=== PATIENT | female | born 1950 | race Caucasian/White ===

== ENCOUNTER → 2016-08-17 | Outpatient (CLI) | payer BC ==
[~2016-08-17] MED LIST: ASPCH81 PO; CALC600T37 PO; CHOL100010 PO; IPRA1AER2 INH; LISI5TAB3 PO; LUTE20CA
--- NOTE | 2016-08-18 08:01 | MAMMOGRAPHY REPORT ---
BILATERAL DIGITAL SCREENING MAMMOGRAM WITH CAD: 08/17/2016 CLINICAL HISTORY: Routine screening. Patient has no complaints. TECHNIQUE: Bilateral CC and MLO views were obtained. Current study was also evaluated with a Compute r Aided Detection (CAD) system. COMPARISON: Comparison is made to exams dated: 08/15/2015 mammogram, 08/13/2014 mammogram, 08/10/2013 mamm ogram, 08/09/2012 mammogram, 08/04/2011 mammogram, and 07/30/2010 mammogram - [facility] BREAST COMPOSITION: There are scattered areas of fibroglandular density in both breasts. FINDINGS: There are stable microcalcifications in the right breast. No new suspicious mass, architec tural distortion or cluster of microcalcifications is seen. IMPRESSION: ACR BI-RADS CATEGORY 1: NEGATIVE There is no mammographic evidence of malignancy. A 1 year screening mammogram is recommended. The pa tient will receive written notification of the results. Approximately 10% of breast cancers are not detected with mammography. A negative mammographic report should not delay biopsy if a clinically suggestive mass is present. Sarah Borjas M.D. ay/:08/17/2016 14:24:10 House Sitter: Celia PHIPPS(R)(M), [facility] letter sent: Normal 1/2 BI-RADS Code: ACR BI-RADS Category 1: Negative
== END | disposition home or self-care (01) ==
LOC: C.MAMM 13:45
PROVIDERS: ATTEND Obstetrics & Gynecology
DX: Z12.31 Encounter for screening mammogram for malignant neoplasm of breast (principal)

== ENCOUNTER → 2016-11-20 | Outpatient (CLI) | payer BC ==
[2016-11-20 13:30] LABS: BASO ABS # 0.06 K/uL (0-0.2); COMPLETE YES; HEMATOCRIT 45.9 % (37-47); LYMPH % 25.6 %; LYMPH ABS # 1.55 K/uL (1.2-3.4); MEAN CELL VOLUME 103.8 fL (80-100); MEAN CORPUSCULAR HEMOGLOBIN 35.1 pg (25-34); MEAN CORPUSCULAR HGB CONC 33.8 g/dl (32-36); MEAN PLATELET VOLUME 11.6 fL (7.4-10.4); MONO % 12.7 %; NEUT % 56.7 %; PLATELET COUNT 304 K/uL (130-400); RED BLOOD COUNT 4.42 M/uL (4.2-5.4); WHITE BLOOD COUNT 6.05 K/uL (4.8-10.8)
[2016-11-20 14:09] LABS: ALT/SGPT 16 U/L (12-78); AST/SGOT 17 U/L (15-37); BLOOD UREA NITROGEN 8 mg/dl (7-18); BUN/CREATININE RATIO 12.2 (10-20); CALCIUM 9.3 mg/dl (8.5-10.1); CARBON DIOXIDE 27 mmol/L (21-32); CHLORIDE 107 mmol/L (98-107); CHOLESTEROL 248 mg/dl (0-200); CREATININE 0.63 mg/dl (0.60-1.20); GLUCOSE 88 mg/dl (70-99); POTASSIUM 4.3 mmol/L (3.5-5.1); SODIUM 140 mmol/L (136-145)
[2016-11-20 14:19] LABS: ALB/GLOB RATIO 1.1 (0.9-2); ALKALINE PHOSPHATASE 65 U/L (45-117); CHOLESTEROL/HDL RATIO 2.9; HDL CHOLESTEROL 86 mg/dl; TRIGLYCERIDES 121 mg/dl (0-150); VERY LOW DENSITY LIPOPROT CALC 24 mg/dl
== END | disposition home or self-care (01) ==
LOC: C.LAB1850 11:49
PROVIDERS: ATTEND Internal Medicine
DX: R53.83 Other fatigue (principal); I10 Essential (primary) hypertension; E78.5 Hyperlipidemia, unspecified; E55.9 Vitamin D deficiency, unspecified

== ENCOUNTER → 2017-02-10 | Outpatient (CLI) | payer BC | END | disposition home or self-care (01) | LOC: C.LABSPEC 14:55 | PROVIDERS: ATTEND Internal Medicine | DX: Z12.11 Encounter for screening for malignant neoplasm of colon (principal) ==

== ENCOUNTER → 2017-10-11 | Outpatient (CLI) | payer BC ==
[~2017-10-11] MED LIST changes: +OXYC-90 PO
[2017-10-11 14:33] LABS: BLOOD UREA NITROGEN 7 mg/dl (7-18); CREATININE 0.67 mg/dl (0.60-1.20)
== END | disposition home or self-care (01) ==
LOC: C.LAB1850 13:23
PROVIDERS: ATTEND Orthopaedic Surgery Sports Medicine
DX: Z01.812 Encounter for preprocedural laboratory examination (principal)

== ENCOUNTER 2023-12-09 15:14 | Inpatient (IN) ==
[2023-12-09 16:03] LABS: Basophils # (auto) 0.13 K/uL (0.00-0.20); Basophils % (auto) 1.2 %; Eosinophils # (auto) 0.11 K/uL (0.00-0.50); Hematocrit (blood only) 32.2 % (37.0-47.0); Hemoglobin 9.2 g/dl (12.0-16.0); Immature Granulocytes # (auto) 0.04 K/uL (0.01-0.20); Immature Granulocytes % (auto) 0.4 %; Lymphocytes # (auto) 1.17 K/uL (1.20-3.40); Lymphocytes % (auto) 10.6 %; Mean Corpuscular Hemoglobin 22.2 pg (25.0-34.0); Mean Corpuscular Hgb Conc 28.6 g/dL (32.0-36.0); Mean Corpuscular Volume 77.6 fL (80.0-100.0); Monocytes # (auto) 1.35 K/uL (0.11-0.59); Monocytes % (auto) 12.3 %; Neutrophils # (auto) 8.21 K/uL (1.40-6.50); Neutrophils % (auto) 74.5 %; Platelet Count 495 K/uL (130-400); RDW Coefficient of Variation 16.8 % (11.5-14.5); RDW Standard Deviation 47.2 fL (36.4-46.3); Red Blood Count 4.15 M/uL (4.20-5.40); White Blood Count 11.01 K/ul (4.8-10.8)
[2023-12-09 16:21] LABS: Alanine Aminotransferase 9 U/L (7-52); Albumin Globulin Ratio 1.5 (0.9-2); Albumin Level 4.1 gm/dl (3.4-5.0); Alkaline Phosphatase 75 U/L (34-104); Anion Gap 7 (3-11); Aspartate Aminotransferase 11 U/L (13-39); BUN Creatinine Ratio 19.6 (10-20); Bilirubin,Total 0.5 mg/dl (0.2-1.0); Blood Urea Nitrogen 11 mg/dl (6-23); Calcium 9.2 mg/dl (8.6-10.3); Carbon Dioxide 25 mmol/L (21-32); Chloride 104 mmol/L (98-107); Globulin 2.7 gm/dl (2.5-4.0); Glucose 85 mg/dl (70-99(Fasting)); Potassium 4.1 mmol/L (3.5-5.1); Sodium 136 mmol/L (136-145); Total Protein 6.8 gm/dl (6.0-8.3)
[2023-12-09 16:27] LABS: Troponin I High Sensitivity 3.9 pg/ml (0-14)
[2023-12-09 16:35] LABS: Partial Thromboplastin Time 27 Seconds (21-31); Prothrombin Time 10.8 Seconds (9.0-12.0)
--- NOTE | 2023-12-09 16:42 | Electrocardiogram Report ---
Test Reason : Blood Pressure : */* mmHG Vent. Rate : 118 BPM Atrial Rate : 118 BPM P-R Int : 180 ms QRS Dur : 68 ms QT Int : 308 ms P-R-T Axes : 90 82 74 degrees QTcB Int : 431 ms Sinus tachycardia with PACs Right atrial enlargement Borderline ECG When compared with ECG of 21-Apr-2023 16:28, No significant change was found Confirmed by Nick Ch ([id number]) on 12/09/2023 4:42:25 PM Referred By: Confirmed By: Nick Ch
--- NOTE | 2023-12-09 17:05 | XRay Report ---
XR chest 1V not portable HISTORY: 73 years-old Female Chest pain, nonspecific COMPARISON: CT chest 05/04/2023 TECHNIQUE: PA view of the chest FINDINGS: Emphysema with chronic interstitial coarsening. Biapical pleural parenchymal scarring redemonstrated. Unchanged linear scarring versus atelectasis of the right lung base. No pneumothorax, pleural effusi on or overt pulmonary edema. Degenerative changes of the shoulders and spine. IMPRESSION: Emphysema without acute process. ACT 112: Negative or not required by law. The above report was generated using voice recognition software. It may contain grammatical, syntax o r spelling errors. Electronically signed by: David Rodrigez M.D. 12/09/2023 5:04 PM
--- NOTE | 2023-12-09 18:05 | Emergency Department Note ---
Impression & Plan Dizziness, Symptomatic anemia, Acute upper GI bleed ED Provider Note HISTORY OF PRESENT ILLNESS: Patient is a 73-year-old female presenting with hypotension and dizziness. Patient was at an outpatient pulmonology visit today when she was noted to be hypotensive with a systolic blood pressure in the low 90s. Patient reports that she has not felt well throughout the day today. Reports she woke up early this morning and was feeling "out of it." She denies any chest pain or abdominal pain. She reports intermittent episodes of shortness of breath. She has end- stage COPD and follows with pulmonology but is not on any supplemental oxygen. She reports feeling shaky and lightheaded throughout the day today. She denies any recent fevers. She denies any melena or obvious hematochezia. She is on Eliquis for history of DVTs. ROS: as above PHYSICAL EXAM: Constitutional: Patient appears in no acute distress. HENT: Head: Normocephalic and atraumatic. Eyes: EOMI, PERRL Mouth/Throat: Mucous membranes moist. Neck: Trachea midline. Neck supple. Cardiovascular: Tachycardic with regular rhythm. No murmurs, rubs or gallops. Intact distal pulses. Pulmonary/Chest: No respiratory distress. Breath sounds clear and equal bilaterally. No wheezes or rales. Abdominal: Abdomen soft, no tenderness, rebound or guarding. Rectal: Chaperoned by nursing staff. No palpable hemorrhoids or masses on rectal exam. Noted to have Hemoccult positive stool. No gross blood or obvious melena on glove. Musculoskeletal: No edema, tenderness or deformity noted. Skin: Warm and dry. No rash, erythema, pallor or cyanosis Psychiatric: Appropriate mood and affect for situation. Neurological: Alert and keenly responsive. CN II-XII grossly intact, moving all extremities equally and fully. MDM: - Vitals signs showed tachycardia - History obtained via patient. History as above. - Chronic conditions affecting care: COPD; Afib; HLD - Differential diagnoses include, but are not limited to: ACS; dysrhythmia; anemia; electrolyte abnormality; pneumonia - Order placed for continuous cardiac monitoring. At this time, monitor showed rate of 107 bpm with normal sinus rhythm, per my interpretation. - External medical records reviewed. Pulmonary office visit note from today was reviewed. Patient had vital signs with systolic blood pressure in the low to mid 90s. She also reportedly was complaining of dizziness at the appointment. - EKG interpreted by myself showed normal sinus rhythm. Rate tachycardic at 118 bpm. QT 308. No acute ischemic changes - Laboratory workup interpreted by myself showed leukocytosis (WBC 11.01); anemia (Hgb 9.2); normal PT/INR; stable electrolytes; normal troponin - CXR negative for pneumonia, per my interpretation. - Hemoglobin was noted to be 12.9 in April 2023. - Type and screen ordered - Orthostatic vital signs positive - patient became hypotensive and tachycardic with standing. - Given patient's hemoglobin drop since April and her symptoms, rectal exam was performed to rule out potential GI bleed. Rectal exam Hemoccult positive. Patient given 80 mg IV protonix. - Discussion was had with manager of case management about patient's case and need for admission - Hospitalist, Dr. Rankin, consulted for admission - Patient admitted to [facility] service for further evaluation and management. ASSESSMENT AND PLAN: Diagnosis: Dizziness; acute upper GI bleed; symptomatic anemia Plan: Admit Past Med/Surg History Problem List (Updated 12/09/23 @ 19:03 by Rika Chaudhary MD) Acute upper GI bleed (Acute) Symptomatic anemia (Acute) Dizziness (Acute) Chronic respiratory failure Chronic bronchitis Exertional shortness of breath Current smoker COPD with emphysema COVID-19 (Acute) Hyperlipidemia Cigarette nicotine dependence Unintended weight loss Osteoporosis Hypertension Abnormal ECG Dyspnea on exertion Medical History (Updated 12/09/23 @ 19:03 by Rika Chaudhary MD) Hypertension Asthma Chronic obstructive pulmonary disease Surgical History S/P cataract surgery History of cataract surgery LEFT Hx of tubal ligation Family History Mother Breast cancer Lymphoma Macular degeneration Multiple myeloma Sister Breast cancer Father Gehrig disease Grandmother (Maternal) Myocardial infarction Denies family history of Ovarian cancer Prostate cancer Colorectal cancer Social History Smoking Status: Current every day smoker Tobacco Type: Cigarettes Age Started Using Tobacco: 17; Cigarettes Per Day: 1ppd; Second Hand Exposure: No; Do You Dip or Chew Tobacco: No; Hx Alcohol Use: Yes Alcohol type: wine Alcohol Intake Frequency Comment: 1-2 glasses daily Hx Substance Use: No Preferred Language: Kinyarwanda Communication Ability: Effective Visual Impairment: No Limitations 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 SEIZURE ATTACK sulfamethoxazole [Bactrim] Allergy Intermediate hives Verified 12/03/23 14:16 trimethoprim [Bactrim] Allergy Intermediate hives Verified 12/03/23 14:16 animal dander Allergy Unknown ALLERGY TO Verified 12/03/23 14:16 RABBIT DANDER/FUR clarithromycin Allergy Unknown FROM Verified 12/03/23 14:16 BIAXIN - UNSURE OF REACTION fluoxetine Allergy Unknown UNKNOWN Verified 12/03/23 14:16 Sulfa (Sulfonamide Allergy Unknown PATIENT Verified 12/03/23 14:16 Antibiotics) DOES NOT BELIEVE SHE IS ALLERGIC TO SULFA Home Meds Home Medications Medication Instructions Recorded Confirmed calcium carbonate 600 mg PO HS 08/22/20 12/03/23 cholecalciferol (vitamin D3) 50 50 mcg PO HS 08/22/20 12/03/23 mcg (2,000 unit) tablet (Vitamin D3) lutein 20 mg capsule 20 mg PO DAILY 10/15/22 12/03/23 aspirin 81 mg tablet,delayed 81 mg PO QAM 05/04/23 12/03/23 release Previous Rx's Medication Instructions Recorded nebulizers #1 ea 03/11/22 alendronate 70 mg tablet (Fosamax) 70 mg PO WK #12 tabs 03/09/23 Oxygen Home #1 ea 05/12/23 ammonium lactate 5 % lotion 1 applic topical BID #226 grams 05/12/23 (Lac-Hydrin Five) furosemide 20 mg tablet 20 mg PO QAM PRN edema #14 tabs 05/12/23 nebulizer accessories (Adult #1 ea 03/06/24 Aerosol Mask) albuterol sulfate 2.5 mg/3 mL 2.5 mg (3 mL) inhalation Q4H PRN 06/10/23 (0.083 %) solution for nebulization shortness of breath or wheezing #75 mL ipratropium bromide 0.02 % 2.5 ml inhalation Q6H PRN 06/10/23 solution for inhalation shortness of breath or wheezing #150 mL lisinopril 5 mg tablet 5 mg PO QAM #100 tabs 07/12/23 rosuvastatin 5 mg tablet 5 mg PO DAILY #90 tabs 07/15/23 apixaban 5 mg tablet (Eliquis) 5 mg PO BID 90 days #180 tabs 11/26/23 budesonide 160 mcg-glycopyr 9 2 inh inhalation BID #10.7 grams 12/09/23 mcg-formot 4.8 mcg/actuation HFA inhaler (Breztri Aerosphere) ensifentrine 3 mg/2.5 mL 2.5 ml inhalation BID #150 mL 12/09/23 suspension for nebulization ipratropium 20 mcg-albuterol 100 1 puff inhalation Q6H PRN 12/09/23 mcg/actuation mist for inhalation Shortness Of Breath Or Wheezing #4 (Combivent Respimat) grams Results & Data (ED) Vital Signs Vital Signs - 24 hr 12/09/23 15:22 12/09/23 17:48 12/09/23 17:48 Pulse Rate - Lying Pulse Rate - Sitting Pulse Rate - Standing Pulse Rate 117 H 109 H Pulse Rhythm Regular Respiratory Rate 12 26 H Respiratory Depth Normal Blood Pressure - Lying Blood Pressure - Sitting Blood Pressure- Standing Blood Pressure 111/70 Blood Pressure Mean 83 Pulse Oximetry 96 100 Oxygen Delivery Method Room Air Room Air Room Air Sepsis Recent Fever Within 48 Hours No Sepsis New/Unexplained Change in Mental Status N/A Sepsis Action Taken by Nursing No Action Required 12/09/23 17:55 12/09/23 18:24 Pulse Rate - Lying 100 H Pulse Rate - Sitting 102 H Pulse Rate - Standing 116 H Pulse Rate 99 H Pulse Rhythm Respiratory Rate Respiratory Depth Blood Pressure - Lying 111/67 Blood Pressure - Sitting 115/73 Blood Pressure- Standing 98/66 L Blood Pressure Blood Pressure Mean Pulse Oximetry Oxygen Delivery Method Sepsis Recent Fever Within 48 Hours Sepsis New/Unexplained Change in Mental Status Sepsis Action Taken by Nursing Laboratory Data 12/09/23 15:45 12/09/23 15:45 Lab Results 12/09/23 12/09/23 12/09/23 Range/Units 15:45 16:21 18:03 WBC 11.01 H (4.8-10.8) K/ul RBC 4.15 L (4.20-5.40) M/uL Hgb 9.2 L (12.0-16.0) g/dl Hct 32.2 L (37.0-47.0) % MCV 77.6 L (80.0-100.0) fL MCH 22.2 L (25.0-34.0) pg MCHC 28.6 L (32.0-36.0) g/dL RDW Std Deviation 47.2 H (36.4-46.3) fL RDW Coeff of Yared 16.8 H (11.5-14.5) % Plt Count 495 H (130-400) K/uL MPV 10.0 (9.4-12.4) fL Immature Gran % (Auto) 0.4 % Neut % (Auto) 74.5 % Lymph % (Auto) 10.6 % Logan % (Auto) 12.3 % Eos % (Auto) 1.0 % Baso % (Auto) 1.2 % Neut # (Auto) 8.21 H (1.40-6.50) K/uL Lymph # (Auto) 1.17 L (1.20-3.40) K/uL Logan # (Auto) 1.35 H (0.11-0.59) K/uL Eos # (Auto) 0.11 (0.00-0.50) K/uL Baso # (Auto) 0.13 (0.00-0.20) K/uL Immature Gran # (Auto) 0.04 (0.01-0.20) K/uL PT 10.8 (9.0-12.0) Seconds INR 1.0 (0.9-1.1) APTT 27 (21-31) Seconds PTT Ratio 1.0 Sodium 136 (136-145) mmol/L Potassium 4.1 (3.5-5.1) mmol/L Chloride 104 (98-107) mmol/L Carbon Dioxide 25 (21-32) mmol/L Anion Gap 7 (3-11) BUN 11 (6-23) mg/dl Creatinine 0.56 L (0.6-1.2) mg/dl Est Cr Clr Drug Dosing Not Reportable eGFR 95.71 BUN/Creatinine Ratio 19.6 (10-20) Glucose 85 (70-99(Fasting)) mg/dl Calcium 9.2 (8.6-10.3) mg/dl Total Bilirubin 0.5 (0.2-1.0) mg/dl AST 11 L (13-39) U/L ALT 9 (7-52) U/L Alkaline Phosphatase 75 (34-104) U/L Troponin I High Sens 3.9 (0-14) pg/ml Total Protein 6.8 (6.0-8.3) gm/dl Albumin 4.1 (3.4-5.0) gm/dl Globulin 2.7 (2.5-4.0) gm/dl Albumin/Globulin Ratio 1.5 (0.9-2) POC Stool Occult Blood Positive A (Negative) Blood Type O Positive Antibody Screen NEGATIVE Imaging Data Radiologist's Impression: Chest X-Ray 12/09/23 00:00 XR chest 1V not portable HISTORY: 73 years-old Female Chest pain, nonspecific COMPARISON: CT chest 05/04/2023 TECHNIQUE: PA view of the chest FINDINGS: Emphysema with chronic interstitial coarsening. Biapical pleural parenchymal scarring redemonstrated. Unchanged linear scarring versus atelectasis of the right lung base. No pneumothorax, pleural effusion or overt pulmonary edema. Degenerative changes of the shoulders and spine. IMPRESSION: Emphysema without acute process. ACT 112: Negative or not required by law. The above report was generated using voice recognition software. It may contain grammatical, syntax or spelling errors. Electronically signed by: David Rodrigez M.D. 12/09/2023 5:04 PM Discharge Plan Visit Data Chief Complaint: Hypotension Stated Complaint: LOW BLOOD PRESSURE, SOB ED Provider: Rika Chaudhary Discharge Problem: Dizziness, Symptomatic anemia, Acute upper GI bleed Forms Stand Alone Forms: My [employer] Prescriptions Prescriptions: No Action alendronate [Fosamax] 70 mg tablet 70 mg PO WK Qty: 12 3RF Rx Instructions: Take with lg glass of water on empty stomach at least 30 min before eating lisinopril 5 mg tablet 5 mg PO QAM Qty: 100 2RF Eliquis 5 mg tablet 5 mg PO BID 90 Days Qty: 180 0RF (DME) nebulizers Misc See Rx Instructions .Route Qty: 1 0RF Rx Instructions: use as directed. compressor with hose and associated accessories-J44.9 lutein 20 mg capsule 20 mg PO DAILY Rx Instructions: give with meal/snack rosuvastatin 5 mg tablet 5 mg PO DAILY Qty: 90 1RF ipratropium bromide 0.02 % solution 2.5 ml inhalation Q6H PRN (Reason: shortness of breath or wheezing) Qty: 150 4RF albuterol sulfate 2.5 mg /3 mL (0.083 %) solution for nebulization 2.5 mg inhalation Q4H PRN (Reason: shortness of breath or wheezing) Qty: 75 4RF furosemide 20 mg tablet 20 mg PO QAM PRN (Reason: edema) Qty: 14 1RF Rx Instructions: Take for 3-5 days for leg swelling Lac-Hydrin Five 5 % lotion 1 applic topical BID Qty: 226 1RF (DME) Adult Aerosol Mask [facility] [place] See Rx Instructions .Route Qty: 1 0RF Rx Instructions: As directed. Adult aerosol Mask and tubing (DME) Oxygen Home Liters Per Minute See Rx Instructions .Route Qty: 1 0RF Rx Instructions: 2L/min via [place] Breztri Aerosphere 160-9-4.8 mcg/actuation HFA aerosol inhaler 2 inh inhalation BID Qty: 10.7 5RF Combivent Respimat 20-100 mcg/actuation mist 1 puff inhalation Q6H PRN (Reason: Shortness Of Breath Or Wheezing) Qty: 4 4RF ensifentrine 3 mg/2.5 mL suspension for nebulization 2.5 ml inhalation BID Qty: 150 5RF calcium carbonate 600 mg calcium (1,500 mg) Tablet 600 mg PO HS cholecalciferol (vitamin D3) [Vitamin D3] 50 mcg (2,000 unit) Tablet 50 mcg PO HS aspirin [Aspir-Low] 81 mg Tablet,Delayed Release (Dr/Ec) 81 mg PO QAM Referrals Referrals: Rose Marie Sheehan MD [Primary Care Provider] -
[2023-12-09] MEDS: PANTOprazole 80 MG in DEXTROSE 5% 100 ML IV STA (19:21)
--- NOTE | 2023-12-09 19:31 | History & Physical Report ---
"Date of Service December 09, 2023 Assessment & Plan (1) Acute upper GI bleed: (2) Symptomatic anemia: Plan Jacquelyn is a 73F w/ PMH of chronic respiratory failure (not on baseline O2), smoking, COPD w/ emphysema, HLD, HTN, and osteoporosis who presented due to hypotension. Hypotension | Acute Blood Loss Anemia (Hgb 9.2) Hemoccult + Stool - Reports of intermittent melena/diarrhea w/o epigastric discomfort, nausea, or emesis Potential a/w alcohol use as dark stools occur following 1-2 beverages - Progressive weight loss and anorexia over last year - Hemoccult positive stool on presentation - Mild hemodynamic instability d/t hypotension/tachycardia IVF started on admission No known CHF history - Hemoglobin 9.2 from baseline 14 (though downtrending this year, last check 12) Given no BRBPM, maintain transfusion threshold of < 7 or symptomatic anemia - Concern exists for UGIB, though consideration given for mass given weight changes CTAP ordered Pantoprazole ordered for GI Ppx Zofran for nausea PRN Gastroenterology consulted, appreciate recommendations - Repeat Hgb in AM or for acute melena/BRBPM Iron panel and Ferritin w/ AM labs Leukocytosis w/ L Shift - W/o clinical signs of infection - Afebrile - Ongoing evaluation as above Skin Lesion - Abnormal skin lesion on R upper back - Recommend PCP follow up outpatient with biopsy Chronic Conditions - COPD w/ Emphysema: No baseline O2, continue home inhalers - BEN: Continue CPAP HS and w/ naps - Smoking: encourage cessation, Nicotine patch ordered - HLD: statin held - HTN: antihypertensives held - Osteoporosis: hold Alendronate d/t increased risk of UGIB History of Present Illness Chief Complaint: Hypotension Primary Care Provider: Rose Marie Sheehan MD Jacquelyn is a 73F w/ PMH of chronic respiratory failure (not on baseline O2), smoking, COPD w/ emphysema, HLD, HTN, and osteoporosis who presented due to hypotension. ED: Pantoprazole Patient presented to her outpatient pulmonology appointment today and was noted to be hypotensive and tachycardic, and thus was sent to ED. She states that today she awakened feeling 'off' but did not have any specific symptoms. She has not had any chest pain, worsening dyspnea, lightheadedness, dizziness, abdominal pain, nausea or emesis. She denies dysuria, but endorses dark to black diarrhea (when she drinks red wine). Patient continues to take Eliquis for a lower extremity DVT she had in April, she was advised to take Eliquis indefinitely outpatient. She notes that over the last year she has had progressively reduced appetite to the point of weight loss. She consumes one meal daily and has 1-2 glasses of red wine each day. She bennie abdominal bloating, lymphadenopathy, fevers, chills, or night sweats. She has chronic respiratory failure from COPD/emphysema, but does not require O2 at baseline. She uses a CPAP at night and during daytime sleep, but overall, she feels that her breathing is at baseline. PCP: Dr. Sheehan Horticultural Farmer: Dr. Joyner Allergies Allergy/AdvReac Type Severity Reaction Status Date / Time metronidazole Allergy Intermediate HIVES/RASH/ITCHING/ Verified 12/03/23 14:16 OR ? SEIZURE ATTACK sulfamethoxazole [Bactrim] Allergy Intermediate hives Verified 12/03/23 14:16 trimethoprim [Bactrim] Allergy Intermediate hives Verified 12/03/23 14:16 animal dander Allergy Unknown ALLERGY TO Verified 12/03/23 14:16 RABBIT DANDER/FUR clarithromycin Allergy Unknown FROM Verified 12/03/23 14:16 BIAXIN - UNSURE OF REACTION fluoxetine Allergy Unknown UNKNOWN Verified 12/03/23 14:16 Sulfa (Sulfonamide Allergy Unknown PATIENT Verified 12/03/23 14:16 Antibiotics) DOES NOT BELIEVE SHE IS ALLERGIC TO SULFA Home Medications Medication Instructions Recorded Confirmed Type calcium carbonate 600 mg PO HS 08/22/20 12/09/23 History cholecalciferol (vitamin D3) 50 50 mcg PO QAM 08/22/20 12/09/23 History mcg (2,000 unit) tablet (Vitamin D3) nebulizers #1 ea 03/11/22 12/09/23 Rx lutein 20 mg capsule 20 mg PO DAILY 10/15/22 12/09/23 History alendronate 70 mg tablet (Fosamax) 70 mg PO WK #12 tabs 03/09/23 12/09/23 Rx aspirin 81 mg tablet,delayed 81 mg PO QAM 05/04/23 12/09/23 History release Oxygen Home #1 ea 05/12/23 12/09/23 Rx ammonium lactate 5 % lotion 1 applic topical BID #226 grams 05/12/23 12/09/23 Rx (Lac-Hydrin Five) furosemide 20 mg tablet 20 mg PO QAM PRN edema #14 tabs 05/12/23 12/09/23 Rx nebulizer accessories (Adult #1 ea 05/12/23 12/09/23 Rx Aerosol Mask) albuterol sulfate 2.5 mg/3 mL 2.5 mg (3 mL) inhalation Q4H PRN 06/10/23 12/09/23 Rx (0.083 %) solution for nebulization shortness of breath or wheezing #75 mL ipratropium bromide 0.02 % 2.5 ml inhalation Q6H PRN 06/10/23 12/09/23 Rx solution for inhalation shortness of breath or wheezing #150 mL lisinopril 5 mg tablet 5 mg PO QAM #100 tabs 07/12/23 12/09/23 Rx apixaban 5 mg tablet (Eliquis) 5 mg PO BID 90 days #180 tabs 11/26/23 12/09/23 Rx budesonide 160 mcg-glycopyr 9 2 inh inhalation BID #10.7 grams 12/09/23 12/09/23 Rx mcg-formot 4.8 mcg/actuation HFA inhaler (Breztri Aerosphere) ensifentrine 3 mg/2.5 mL 2.5 ml inhalation BID #150 mL 12/09/23 12/09/23 Rx suspension for nebulization ipratropium 20 mcg-albuterol 100 1 puff inhalation Q6H PRN 12/09/23 12/09/23 Rx mcg/actuation mist for inhalation Shortness Of Breath Or Wheezing #4 (Combivent Respimat) grams Past Med/Surg History Problem List Acute upper GI bleed (Acute) Symptomatic anemia (Acute) Dizziness (Acute) Chronic respiratory failure Chronic bronchitis Exertional shortness of breath Current smoker COPD with emphysema COVID-19 (Acute) Hyperlipidemia Cigarette nicotine dependence Unintended weight loss Osteoporosis Hypertension Abnormal ECG Dyspnea on exertion Medical History Hypertension Asthma Chronic obstructive pulmonary disease Surgical History S/P cataract surgery History of cataract surgery LEFT Hx of tubal ligation Family History Mother Breast cancer Lymphoma Macular degeneration Multiple myeloma Sister Breast cancer Father Gehrig disease Grandmother (Maternal) Myocardial infarction Denies family history of Ovarian cancer Prostate cancer Colorectal cancer Social History Smoking Status: Current every day smoker Tobacco Type: Cigarettes Age Started Using Tobacco: 17; Cigarettes Per Day: 1/2 ppd; Second Hand Exposure: No; Do You Dip or Chew Tobacco: No; Tobacco Cessation Education Requested by Patient: No Hx Alcohol Use: Yes Alcohol type: wine Alcohol Intake Frequency Comment: 1-2 glasses daily Hx Substance Use: No Preferred Language: Israeli Communication Ability: Effective Visual Impairment: No Limitations Hearing Ability: Normal Wine Maker Required: No Beliefs That Will Affect Care: None marital status: Current Living Situation: Spouse current occupational status: retired Other Information That Helps Us Care for You: No Feels Safe at Home: Yes Childhood Exposure to Second-Hand Smoke: Yes Diet: regular Dental Care, Regularly: Yes Physical Activity Frequency: Does not Exercise Seatbelt Use: always Sunscreen Use: Yes (sometimes ) Assistive Devices: CPAP, Nebulizer and Walker Review of Systems Review of Systems: All systems reviewed & are unremarkable except as noted in HPI & below Physical Exam Physical Exam: Gen: NAD, alert, interactive, pleasant HEENT: Supple, no LAD, no thyromegaly, no JVD, dry mucous membranes Resp:Non-labored, reduced air entry bilaterally, no wheezing/rhonchi/rales CV:tachycardic, regular rhythm, normal S1/S2, no M/R/G Abd: Soft, non-distended, no TTP, hypooactive bowels, no masses Extr: 2+ dp bilaterally, no edema Skin: Abrasion/wound to lateral aspect of left great toe w/o purulence or erythema. Dark brown skin lesion on right upper back (scapula) with irregular coloring and borders amidst numerous seborrheic keratosis. Results & Data Results & Data Vital Signs (Past 12 Hours) Vital Signs Pulse Resp BP Pulse Ox O2 Del Method 12/09/23 17:55 99 H 12/09/23 17:48 109 H 26 H 100 Room Air 12/09/23 17:48 Room Air 12/09/23 15:22 117 H 12 111/70 96 Room Air Laboratory Results Laboratory Results WBC 11.01 K/ul (4.8-10.8) H 12/09/23 15:45 RBC 4.15 M/uL (4.20-5.40) L 12/09/23 15:45 Hgb 9.2 g/dl (12.0-16.0) L 12/09/23 15:45 Hct 32.2 % (37.0-47.0) L 12/09/23 15:45 MCV 77.6 fL (80.0-100.0) L 12/09/23 15:45 MCH 22.2 pg (25.0-34.0) L 12/09/23 15:45 MCHC 28.6 g/dL (32.0-36.0) L 12/09/23 15:45 RDW Std Deviation 47.2 fL (36.4-46.3) H 12/09/23 15:45 RDW Coeff of Yared 16.8 % (11.5-14.5) H 12/09/23 15:45 Plt Count 495 K/uL (130-400) H 12/09/23 15:45 MPV 10.0 fL (9.4-12.4) 12/09/23 15:45 Immature Gran % (Auto) 0.4 % 12/09/23 15:45 Neut % (Auto) 74.5 % 12/09/23 15:45 Lymph % (Auto) 10.6 % 12/09/23 15:45 [place] % (Auto) 12.3 % 12/09/23 15:45 Eos % (Auto) 1.0 % 12/09/23 15:45 Baso % (Auto) 1.2 % 12/09/23 15:45 Neut # (Auto) 8.21 K/uL (1.40-6.50) H 12/09/23 15:45 Lymph # (Auto) 1.17 K/uL (1.20-3.40) L 12/09/23 15:45 [place] # (Auto) 1.35 K/uL (0.11-0.59) H 12/09/23 15:45 Eos # (Auto) 0.11 K/uL (0.00-0.50) 12/09/23 15:45 Baso # (Auto) 0.13 K/uL (0.00-0.20) 12/09/23 15:45 Immature Gran # (Auto) 0.04 K/uL (0.01-0.20) 12/09/23 15:45 PT 10.8 Seconds (9.0-12.0) 12/09/23 15:45 INR 1.0 (0.9-1.1) 12/09/23 15:45 APTT 27 Seconds (21-31) 12/09/23 15:45 PTT Ratio 1.0 12/09/23 15:45 Sodium 136 mmol/L (136-145) 12/09/23 15:45 Potassium 4.1 mmol/L (3.5-5.1) 12/09/23 15:45 Chloride 104 mmol/L (98-107) 12/09/23 15:45 Carbon Dioxide 25 mmol/L (21-32) 12/09/23 15:45 Anion Gap 7 (3-11) 12/09/23 15:45 BUN 11 mg/dl (6-23) 12/09/23 15:45 Creatinine 0.56 mg/dl (0.6-1.2) L 12/09/23 15:45 Est Cr Clr Drug Dosing Not Reportable 12/09/23 15:45 eGFR 95.71 12/09/23 15:45 BUN/Creatinine Ratio 19.6 (10-20) 12/09/23 15:45 Glucose 85 mg/dl (70-99(Fasting)) 12/09/23 15:45 Calcium 9.2 mg/dl (8.6-10.3) 12/09/23 15:45 Total Bilirubin 0.5 mg/dl (0.2-1.0) 12/09/23 15:45 AST 11 U/L (13-39) L 12/09/23 15:45 ALT 9 U/L (7-52) 12/09/23 15:45 Alkaline Phosphatase 75 U/L (34-104) 12/09/23 15:45 Troponin I High Sens 3.9 pg/ml (0-14) 12/09/23 15:45 Total Protein 6.8 gm/dl (6.0-8.3) 12/09/23 15:45 Albumin 4.1 gm/dl (3.4-5.0) 12/09/23 15:45 Globulin 2.7 gm/dl (2.5-4.0) 12/09/23 15:45 Albumin/Globulin Ratio 1.5 (0.9-2) 12/09/23 15:45 POC Stool Occult Blood Positive (Negative) A 12/09/23 18:03 Blood Type O Positive 12/09/23 16:21 Antibody Screen NEGATIVE 12/09/23 16:21 Impressions Chest X-Ray 12/09/23 00:00 XR chest 1V not portable HISTORY: 73 years-old Female Chest pain, nonspecific COMPARISON: CT chest 05/04/2023 TECHNIQUE: PA view of the chest FINDINGS: Emphysema with chronic interstitial coarsening. Biapical pleural parenchymal scarring redemonstrated. Unchanged linear scarring versus atelectasis of the right lung base. No pneumothorax, pleural effusion or overt pulmonary edema. Degenerative changes of the shoulders and spine. IMPRESSION: Emphysema without acute process. ACT 112: Negative or not required by law. The above report was generated using voice recognition software. It may contain grammatical, syntax or spelling errors. Electronically signed by: David Rodrigez M.D. 12/09/2023 5:04 PM Abdomen/Pelvis CT 12/09/23 20:25 Exam(s): CT ABDOMEN + PELVIS With Contrast IV Amt: 95 ml optiray 320 EXAM: CT Abdomen and Pelvis With Intravenous Contrast CLINICAL HISTORY: Reason for exam: melena, weight loss. TECHNIQUE: Axial computed tomography images of the abdomen and pelvis with intravenous contrast. CTDI is 7 mGy and DLP is 321 mGy-cm. Automated exposure control was utilized for the study. A dose lowering technique was utilized adhering to the principles of ALARA. CONTRAST: Patient received 95 ml optiray 320 of IV contrast COMPARISON: 06/15/2019 FINDINGS: Lung bases: Diffuse changes COPD. No consolidation.small right pleural effusion ABDOMEN: Liver: Unremarkable. No mass. Gallbladder and bile ducts: Unremarkable. No calcified stones. No ductal dilation. Pancreas: Unremarkable. No mass. No ductal dilation. Spleen: Unremarkable. No splenomegaly. Adrenals: Unremarkable. No mass. Kidneys and ureters: Unremarkable. No solid mass. No hydronephrosis. Stomach and bowel: Diverticulosis without evidence of diverticulitis. No obstruction. PELVIS: Appendix: No findings to suggest acute appendicitis. Bladder: Unremarkable. No mass. Reproductive: Unremarkable as visualized. ABDOMEN and PELVIS: Intraperitoneal space: Unremarkable. No free air. No significant fluid collection. Bones/joints: No acute fracture. No dislocation. Soft tissues: Unremarkable. Vasculature: Diffuse vascular calcifications. No abdominal aortic aneurysm. Lymph nodes: Unremarkable. No enlarged lymph nodes. Other findings: Multilevel discogenic disc disease of the lumbar spine. IMPRESSION: No acute findings in the abdomen or pelvis. Chronic changes as described above Electronically signed by: Hans Oakley MD 12/09/23 22:29 PM Supervising Physician Co-Signing Physician Notes Patient seen and examined, chart reviewed, case discussed with Dr. Mendes and I agree with the assessment and plan as above. In brief, patient is a 73yo female with COPD, HTN, HLP, prior DVT on Eliquis anticoagulation and daily ASA presenting with report of melena ongoing. Additionally patient reports weight loss and reduced appetite. On exam patient with blood pressure of 92/64 initially Skin - no rash, brown lesion present on upper back HEENT- MMM, neck supple Heart - +S1/S2, regular Lungs - CTA Abd - +BS, soft, NT/ND Ext - warm, well perfused Labs and images reviewed Hgb declined 12.9 --> 9.2 (when compared to April 2023), microcytic and hypochromic - was previously macrocytic Platelets and coagulation panel WNL No evidence of liver disease Assessment/Plan Concern for UGIB in patient presenting with reported melena, heme+ stools. She is on anticoagulation with Eliquis and ASA daily. Does drink EtOH, no NSAID use. Had an EGD many years ago which she reports being unremarkable. DDx to include gastritis, esophagitis, PUD, concern for malignancy given report of weight loss as well -Admit to PCU -Maintain 2 large PIVs -Protonix 40mg IV BID -Will add iron panel to AM labs -GI Consultation appreciated -Remainder as above"
[2023-12-09] MEDS: OPTIRAY 320 100ml IV ONE (20:36)
[2023-12-09] MEDS ORDERED: IPRATROPIUM BROMIDE/ALBUTEROL respimat INH INH STA ×2 (21:45→22:12)
[2023-12-09] MEDS ORDERED: ACETAMINOPHEN 325 MG TAB PO PRN (22:12)
[2023-12-09] MEDS ORDERED: NON-FORMULARY MEDICATION (Budesonide-Glycopyr-Formoterol [Breztri Aerosphere] 160-9-4.8 mc INH SCH (22:12)
[2023-12-09] MEDS ORDERED: ONDANSETRON INJ 2 MG/ML 2 ML VIAL IV PRN (22:12)
[2023-12-09] MEDS ORDERED: IPRATROPIUM BROMIDE/ALBUTEROL respimat INH INH PRN (22:12)
[2023-12-09] MEDS ORDERED: IPRATROPIUM BROMIDE NEB SOLN 0.02% 0.5MG/2.5ML VIAL INH PRN (22:12)
[2023-12-09] MEDS ORDERED: FLUTICASONE/VILANTEROL 200/25MCG 14 PUFFS/INHALER INH STA (22:12)
[2023-12-09] MEDS ORDERED: ALBUTEROL 0.083% NEBU SOLN 3 ML VIAL INH PRN (22:12)
--- NOTE | 2023-12-09 22:30 | CT Scan Report ---
Exam(s): CT ABDOMEN + PELVIS With Contrast IV Amt: 95 ml optiray 320 EXAM: CT Abdomen and Pelvis With Intravenous Contrast CLINICAL HISTORY: Reason for exam: melena, weight loss. TECHNIQUE: Axial computed tomography images of the abdomen and pelvis with intravenous contrast. CTDI is 7 mGy and DLP is 321 mGy-cm. Automated exposure control was utilized for the study. A dose lowering technique was utilized adhering to the principles of ALARA. CONTRAST: Patient received 95 ml optiray 320 of IV contrast COMPARISON: 06/15/2019 FINDINGS: Lung bases: Diffuse changes COPD. No consolidation.small right pleural effusion ABDOMEN: Liver: Unremarkable. No mass. Gallbladder and bile ducts: Unremarkable. No calcified stones. No ductal dilation. Pancreas: Unremarkable. No mass. No ductal dilation. Spleen: Unremarkable. No splenomegaly. Adrenals: Unremarkable. No mass. Kidneys and ureters: Unremarkable. No solid mass. No hydronephrosis. Stomach and bowel: Diverticulosis without evidence of diverticulitis. No obstruction. PELVIS: Appendix: No findings to suggest acute appendicitis. Bladder: Unremarkable. No mass. Reproductive: Unremarkable as visualized. ABDOMEN and PELVIS: Intraperitoneal space: Unremarkable. No free air. No significant fluid collection. Bones/joints: No acute fracture. No dislocation. Soft tissues: Unremarkable. Vasculature: Diffuse vascular calcifications. No abdominal aortic aneurysm. Lymph nodes: Unremarkable. No enlarged lymph nodes. Other findings: Multilevel discogenic disc disease of the lumbar spine. IMPRESSION: No acute findings in the abdomen or pelvis. Chronic changes as described above Electronically signed by: Hans Oakley MD 12/09/23 22:29 PM
[2023-12-09] MEDS: LACTATED RINGER'S 1,000 ML IV SCH (22:34)
[2023-12-09] MEDS: Ipratropium HFA Inhaler (Combivent Respimat P&T Subs) INH STA ×2 (23:17→23:20)
[2023-12-09] MEDS: Albuterol HFA 8 GM Inhaler (Combivent Respimat P&T Subs) INH STA ×2 (23:17→23:20)
[2023-12-09] MEDS: FLUTICASONE/VILANTEROL 200/25MCG 14 PUFFS/INHALER INH STA (23:24)
--- NOTE | 2023-12-09 23:44 | Billing Data ---
Date of Service December 09, 2023 Coding Level of Care Code 60506 INT INP/OBS CARE
[2023-12-10 06:36] LABS: Hematocrit (blood only) 25.3 % (37.0-47.0); Hemoglobin 7.3 g/dl (12.0-16.0); Mean Corpuscular Hemoglobin 22.1 pg (25.0-34.0); Mean Corpuscular Hgb Conc 28.9 g/dL (32.0-36.0); Mean Corpuscular Volume 76.4 fL (80.0-100.0); Mean Platelet Volume 10.2 fL (9.4-12.4); Platelet Count 369 K/uL (130-400); RDW Coefficient of Variation 16.7 % (11.5-14.5); RDW Standard Deviation 46.2 fL (36.4-46.3); Red Blood Count 3.31 M/uL (4.20-5.40)
[2023-12-10 06:55] LABS: Calcium 8.4 mg/dl (8.6-10.3); Potassium 3.8 mmol/L (3.5-5.1)
[2023-12-10 07:14] LABS: Ferritin 3.9 ng/ml (8-388)
--- NOTE | 2023-12-10 07:36 | Hospitalist Progress Note ---
Date of Service December 10, 2023 Assessment & Plan (1) Acute upper GI bleed: (2) Symptomatic anemia: (3) Hypotension: Plan Jacquelyn is a 73F w h/o chronic respiratory failure (not on baseline O2), smoking, COPD w/ emphysema, HLD, HTN, and osteoporosis who presented from outpatient [employer] due to hypotension and tachycardia. #Acute UGIB - Pt reports intermittent melena/diarrhea w/o epigastric discomfort, nausea, or emesis Potential a/w alcohol use, as dark stools occur after drinking wine Significant (exact amt unknown) weight loss in past 1-2 years Has been on apixaban for DVT since May 2023 - Pantoprazole for GI ppx, Zofran for nausea PRN - Stool occult blood + - CT A/P on 12/08: No acute findings - GI consulted, recommend: IV PPI, hold NSAIDs & AC, trend H&H, monitor and document GI output, Transfuse PRN, OP Colonoscopy, CT CAP w/ IV and PO contrast - EGD on 12/09: 2cm hiatal hernia; normal duodenum biopsied; no source of bleeding identified; recc holding anticoag, outpt colonoscopy #Anemia, acute blood loss #Hypotension, in setting of blood loss anemia - Mild hemodynamic instability on arrival, w hypotension to 92/64 and tachycardia to 117 - Vitals improved w IVF, HR wnl now and BP up to 131/65 this morning - Hgb stabilizin at baseline --> 9.2 at arrival --> 7.3 early this morning --> 7.6 later today - Iron studies showed low Fe and Transferrin % sat --> give 300mg IV iron - Continue trending H&H, transfuse as needed (Hgb < 7 or symptomatic) #Chest pain - CT chest 12/08: Emphysema without acute process. - ECG 12/08: Borderline; no significant changes compared to ECG of 04/21/23 Admission and Anticipated Discharge Date Admission Date: December 09, 2023 Supervising Physician Co-Signing Physician Notes ATTESTATION I also saw the patient and confirmed ferrer portions of the history and exam. I agree with the impression and plan in the resident documentation, and as summarized below. Post EGD, this is feeling generally well and is hungry. We reviewed the results of her EGD and need for additional testing, although this may be done as an outpatient should her Hgb remain stable. EXAM 107/54, 89, 18, Afebrile, 96% on room air Looks well. Non toxic. Alert and oriented. CV regular Lungs CTA ABD non tender DATA Labs HgB = 7.3 this morning BMP unremarkable Iron studies c/w deficiency Imaging CT Abd and pelvis without acute findings CXR with chronic changes c/w obstructive lung disease, but no acute findings Micro No cultures obtained upon admission IMPRESSION & PLAN Anemia suspect secondary to GI bleeding EGD negative; will need colonoscopy as an outpatient Will repeat HgB post EGD If less than 7, will transfuse If greater than 7, IV iron infusion Will hold anticoagulant and aspirin The only indication I could find for the DOAC was DVT earlier this year. With no prior history of VTE, she has completed appropriate course of AC. Will not resume. She was taking low dose aspirin for primary prevention; will not resume Hopefully, stopping anticoagulation will allow for stabilization of HgB and further work-up as an outpatient Additional per resident documentation Subjective Feeling okay this morning when seen by team. Good understanding of her condition. Denies CP or dizziness/lightheadedness. No n/v, hungry and requests diet change. Review of Systems 2 Review of Systems: Per HPI. Physical Exam 2 Physical Exam: Gen: NAD, alert, interactive, pleasant HEENT: NC/AT, no LAD, dry mucous membranes Resp:Non-labored, symmetrical chest rise CV:RRR, no M/R/G, normal S1/S2 Abd: nt/nd, no masses Results & Data Results & Data Vital Signs (Past 12 Hours) Vital Signs Temp Pulse Pulse Pulse Resp BP BP 12/10/23 07:15 89 12/10/23 07:05 36.6 C 82 18 107/54 L 12/10/23 02:59 36.7 C 93 H 14 99/59 L 12/09/23 23:37 100 H 12/09/23 22:51 36.7 C 106 H 19 116/72 12/09/23 22:17 103 H 12/09/23 22:05 12/09/23 22:05 36.7 C 106 H 20 12/09/23 22:05 36.7 C 106 H 20 12/09/23 21:30 91 H 24 116/72 12/09/23 20:00 98 H 18 112/67 BP Pulse Ox O2 Del Method 12/10/23 07:15 12/10/23 07:05 96 Room Air 12/10/23 02:59 95 Room Air 12/09/23 23:37 96 12/09/23 22:51 98 Room Air 12/09/23 22:17 12/09/23 22:05 Room Air 12/09/23 22:05 116/72 98 Room Air 12/09/23 22:05 116/72 98 Room Air 12/09/23 21:30 99 12/09/23 20:00 99 Laboratory Results 12/10/23 05:21 Iron studies: Fe 10 (L) TIBC 386 Unsat IBC 376 (H) Transferrin %sat 3% (L) Ferritin 3.9 (L) 12/10/23 05:21 Ca 8.4 AST 11, ALT 9, ALP 75 HS Trop 3.9 POC Stool Occult Blood: Pos Diagnostic Findings Chest X-Ray 1V 12/09/23 00:00 HISTORY: 73 years-old Female Chest pain, nonspecific COMPARISON: CT chest 05/04/2023 Procedure: Upper GI endoscopy Date: 12/10/2023 Attending Physician: Eddie Frank MD Referring MD: Papa Bower Indications: - Iron deficiency anemia - Recent gastrointestinal bleeding Medications: - Monitored Anesthesia Care Complications: - No immediate complications. Estimated Blood Loss: - Estimated blood loss: None. Procedure: - The egd scope was introduced through the mouth and advanced to the second part of the duodenum. - The upper GI endoscopy was accomplished without difficulty. - The patient tolerated the procedure well. Findings: - The Z-line was irregular and was found 38 cm from the incisors. - The examined esophagus was normal. - A 2 cm hiatal hernia was present. - The exam of the stomach was otherwise normal. - The examined duodenum was normal. Biopsies for histology were taken with a cold forceps for evaluation of celiac disease. Impression: - Z-line irregular, 38 cm from the incisors. - Normal esophagus. - 2 cm hiatal hernia. - Normal examined duodenum. Biopsied. Recommendation: - Await pathology results. - Intravenous iron replenishment. Outpatient colonoscopy. Advance diet. Hold anticoagulation TECHNIQUE: PA view of the chest FINDINGS: Emphysema with chronic interstitial coarsening. Biapical pleural parenchymal scarring redemonstrated. Unchanged linear scarring versus atelectasis of the right lung base. No pneumothorax, pleural effusion or overt pulmonary edema. Degenerative changes of the shoulders and spine. IMPRESSION: Emphysema without acute process. Electronically signed by: David Rodrigez M.D. 12/09/2023 5:[address] ABDOMEN + PELVIS With Contrast IV Amt: 95 ml optiray 320 12/09/23 20:25 CLINICAL HISTORY: Reason for exam: melena, weight loss. COMPARISON: 06/15/2019 FINDINGS: Lung bases: Diffuse changes COPD. No consolidation.small right pleural effusion ABDOMEN: Liver: Unremarkable. No mass. Gallbladder and bile ducts: Unremarkable. No calcified stones. No ductal dilation. Pancreas: Unremarkable. No mass. No ductal dilation. Spleen: Unremarkable. No splenomegaly. Adrenals: Unremarkable. No mass. Kidneys and ureters: Unremarkable. No solid mass. No hydronephrosis. Stomach and bowel: Diverticulosis without evidence of diverticulitis. No obstruction. PELVIS: Appendix: No findings to suggest acute appendicitis. Bladder: Unremarkable. No mass. Reproductive: Unremarkable as visualized. ABDOMEN and PELVIS: Intraperitoneal space: Unremarkable. No free air. No significant fluid collection. Bones/joints: No acute fracture. No dislocation. Soft tissues: Unremarkable. Vasculature: Diffuse vascular calcifications. No abdominal aortic aneurysm. Lymph nodes: Unremarkable. No enlarged lymph nodes. Other findings: Multilevel discogenic disc disease of the lumbar spine. IMPRESSION: No acute findings in the abdomen or pelvis. Chronic changes as described above Electronically signed by: Hans Oakley MD 12/09/23 22:29 PM ECG 12/09/23 Sinus tachycardia with PACs Right atrial enlargement Borderline ECG When compared with ECG of 21-Apr-2023 16:28, No significant change was found Confirmed by Nick Ch ([id number]) on 12/09/2023 4:42:25 PM Resident Activity Tracking Resident Involvement: Resident Care Provided Care Provided: Adult [facility] Medicine
[2023-12-10] MEDS: NICOTINE 14 MG/24 HR PATCH TD SCH (08:53)
[2023-12-10] MEDS: PANTOprazole 40 MG in SYRINGE 0 ML IV SCH (08:53)
[2023-12-10] MEDS: FLUTICASONE FUROATE 200MCG 14 PUFFS/INHALER INH SCH (08:54)
[2023-12-10] MEDS: UMECLIDINIUM/VILANTEROL 62.5/25MCG 7 PUFFS/INHALER INH SCH (08:55)
[2023-12-10] MEDS: Albuterol HFA 8 GM Inhaler (Combivent Respimat P&T Subs) INH PRN (09:04)
[2023-12-10] MEDS: Ipratropium HFA Inhaler (Combivent Respimat P&T Subs) INH PRN (09:04)
--- NOTE | 2023-12-10 09:16 | Gastrointestinal Consultation ---
Date of Consultation December 10, 2023 Assessment & Plan (1) Symptomatic anemia: 73 year old female with history of chronic respiratory failure (not on baseline O2), smoking, COPD w/ emphysema, HLD, HTN, and osteoporosis admitted through the ED w/ hypotension, anemia - GI was asked to evaluate for melena. She endorses a significant weight loss over the last few years of 4 pant sizes. DDX discussed: esophagitis, gastritis, angiectasias/AVM, polyps, underlying lesions Anemia, intermittent melena - EGD today - IV PPI - Hold NSAIDs - Hold AC - Trend H&H - Monitor and document GI output - Transfuse PRN per primary team Unintentional weight loss - EGD today - OP Colonoscopy - CT CAP w/ IV and PO contrast We appreciate assistance in the management of any serological abnormality and corrections to include: hemoglobin >7, INR <2, platelets >50,000, potassium levels >3.5 but <5.3, and sodium levels within 5 points of the reference range prior to endoscopic evaluation. Thank you for allowing us to participate in the care of this patient. Please call with any acute changes, questions or concerns. Please see addendum below with additional recommendation from my supervising physician. I spent a total of 60 minutes on the date of service in review of patient's record, and previously obtained information in person and appropriate medical visit, discussion and education of plan, with patient and/or caregiver, placing orders for tests/referral/procedures as medically necessary and doc umentation of pertinent clinical information in patient's medical records for their visit today. Supervising Physician Co-Signing Physician Notes I examined the patient and reviewed patient's chart , laboratory data and imaging studies. I agree with with assessment and plan of care as suggested by advanced practice provider. Iron deficiency anemia, recent melena, weight loss. The patient is on apixaban for DVT since May 2023. EGD today. If stable for outpatient colonoscopy. History of Present Illness Reason for Consultation: melena, weight loss Requesting Physician: Papa Bower DO Attending Physician: Papa Bower DO History of Present Illness 73 year old female with history of chronic respiratory failure (not on baseline O2), smoking, COPD w/ emphysema, HLD, HTN, and osteoporosis admitted through the ED w/ hypotension. GI was asked to evaluate for melena. Pt was seen and evaluated, chart reviewed. Endorses significant weight loss over the last 1-2 years. Suggests she dropped about 4 pant sizes but is unsure of specific weight measurements. Denies abd pain. Denies nausea/vomiting. Denies appetite changes. Does report intermittent black stools for "some time." Does not see any BRBPR. No fever, chills, CP, SOB. HGB 7.3, BUN 10 CTAP 2023: No acute findings in the abdomen or pelvis. Colonoscopy 2013: left sided diverticulosis Allergies Allergy/AdvReac Type Severity Reaction Status Date / Time metronidazole Allergy Intermediate HIVES/RASH/ITCHING/ Verified 12/03/23 14:16 OR ? SEIZURE ATTACK sulfamethoxazole [Bactrim] Allergy Intermediate hives Verified 12/03/23 14:16 trimethoprim [Bactrim] Allergy Intermediate hives Verified 12/03/23 14:16 animal dander Allergy Unknown ALLERGY TO Verified 12/03/23 14:16 RABBIT DANDER/FUR clarithromycin Allergy Unknown FROM Verified 12/03/23 14:16 BIAXIN - UNSURE OF REACTION fluoxetine Allergy Unknown UNKNOWN Verified 12/03/23 14:16 Sulfa (Sulfonamide Allergy Unknown PATIENT Verified 12/03/23 14:16 Antibiotics) DOES NOT BELIEVE SHE IS ALLERGIC TO SULFA Home Medications Medication Instructions Recorded Confirmed Type calcium carbonate 600 mg PO HS 08/22/20 12/09/23 History cholecalciferol (vitamin D3) 50 50 mcg PO QAM 08/22/20 12/09/23 History mcg (2,000 unit) tablet (Vitamin D3) nebulizers #1 ea 03/11/22 12/09/23 Rx lutein 20 mg capsule 20 mg PO DAILY 10/15/22 12/09/23 History alendronate 70 mg tablet (Fosamax) 70 mg PO WK #12 tabs 03/09/23 12/09/23 Rx aspirin 81 mg tablet,delayed 81 mg PO QAM 05/04/23 12/09/23 History release Oxygen Home #1 ea 05/12/23 12/09/23 Rx ammonium lactate 5 % lotion 1 applic topical BID #226 grams 05/12/23 12/09/23 Rx (Lac-Hydrin Five) furosemide 20 mg tablet 20 mg PO QAM PRN edema #14 tabs 05/12/23 12/09/23 Rx nebulizer accessories (Adult #1 ea 05/12/23 12/09/23 Rx Aerosol Mask) albuterol sulfate 2.5 mg/3 mL 2.5 mg (3 mL) inhalation Q4H PRN 06/10/23 12/09/23 Rx (0.083 %) solution for nebulization shortness of breath or wheezing #75 mL ipratropium bromide 0.02 % 2.5 ml inhalation Q6H PRN 06/10/23 12/09/23 Rx solution for inhalation shortness of breath or wheezing #150 mL lisinopril 5 mg tablet 5 mg PO QAM #100 tabs 07/12/23 12/09/23 Rx apixaban 5 mg tablet (Eliquis) 5 mg PO BID 90 days #180 tabs 11/26/23 12/09/23 Rx budesonide 160 mcg-glycopyr 9 2 inh inhalation BID #10.7 grams 12/09/23 12/09/23 Rx mcg-formot 4.8 mcg/actuation HFA inhaler (Breztri Aerosphere) ensifentrine 3 mg/2.5 mL 2.5 ml inhalation BID #150 mL 12/09/23 12/09/23 Rx suspension for nebulization ipratropium 20 mcg-albuterol 100 1 puff inhalation Q6H PRN 12/09/23 12/09/23 Rx mcg/actuation mist for inhalation Shortness Of Breath Or Wheezing #4 (Combivent Respimat) grams Patient History Medical History Hypertension Asthma Chronic obstructive pulmonary disease Surgical History S/P cataract surgery History of cataract surgery LEFT Hx of tubal ligation Family History Mother Breast cancer Lymphoma Macular degeneration Multiple myeloma Sister Breast cancer Father Gehrig disease Grandmother (Maternal) Myocardial infarction Denies family history of Ovarian cancer Prostate cancer Colorectal cancer Social History Smoking Status: Current every day smoker Tobacco Type: Cigarettes Age Started Using Tobacco: 17; Cigarettes Per Day: 1/2 ppd; Second Hand Exposure: No; Do You Dip or Chew Tobacco: No; Tobacco Cessation Education Requested by Patient: No Hx Alcohol Use: Yes Alcohol type: wine Alcohol Intake Frequency Comment: 1-2 glasses daily Hx Substance Use: No Preferred Language: Wallisian Communication Ability: Effective Visual Impairment: No Limitations Hearing Ability: Normal Die Reamer Required: No Beliefs That Will Affect Care: None marital status: Current Living Situation: Spouse current occupational status: retired Other Information That Helps Us Care for You: No Feels Safe at Home: Yes Childhood Exposure to Second-Hand Smoke: Yes Diet: regular Dental Care, Regularly: Yes Physical Activity Frequency: Does not Exercise Seatbelt Use: always Sunscreen Use: Yes (sometimes ) Assistive Devices: CPAP, Nebulizer and Walker Review of Systems Review of Systems: All other findings negative except as noted in HPI. Physical Exam Constitutional: WD/WN, vitals as above Respiratory: normal respiratory effort Cardiovascular: Rate/Rhythm: regular rate and regular rhythm Gastrointestinal (Abdomen): normal bowel sounds, soft, nontender, no hepatosplenomegaly Skin: no rashes, warm and dry Results & Data Vital Signs (Past 12 Hours) Vital Signs Temp Pulse Pulse Pulse Resp BP BP 12/10/23 09:06 104 H 12/10/23 07:15 89 12/10/23 07:05 36.6 C 82 18 107/54 L 12/10/23 02:59 36.7 C 93 H 14 99/59 L 12/09/23 23:37 100 H 12/09/23 22:51 36.7 C 106 H 19 116/72 12/09/23 22:17 103 H 12/09/23 22:05 12/09/23 22:05 36.7 C 106 H 20 12/09/23 22:05 36.7 C 106 H 20 12/09/23 21:30 91 H 24 116/72 BP Pulse Ox O2 Del Method 12/10/23 09:06 97 Room Air 12/10/23 07:15 12/10/23 07:05 96 Room Air 12/10/23 02:59 95 Room Air 12/09/23 23:37 96 12/09/23 22:51 98 Room Air 12/09/23 22:17 12/09/23 22:05 Room Air 12/09/23 22:05 116/72 98 Room Air 12/09/23 22:05 116/72 98 Room Air 12/09/23 21:30 99 Laboratory Results 12/10/23 12/09/23 12/09/23 Range/Units 05:21 18:03 16:21 WBC 5.60 (4.8-10.8) K/ul RBC 3.31 L (4.20-5.40) M/uL Hgb 7.3 L (12.0-16.0) g/dl Hct 25.3 L (37.0-47.0) % MCV 76.4 L (80.0-100.0) fL MCH 22.1 L (25.0-34.0) pg MCHC 28.9 L (32.0-36.0) g/dL RDW Std Deviation 46.2 (36.4-46.3) fL RDW Coeff of Yared 16.7 H (11.5-14.5) % Plt Count 369 (130-400) K/uL MPV 10.2 (9.4-12.4) fL Immature Gran % (Auto) % Neut % (Auto) % Lymph % (Auto) % [place] % (Auto) % Eos % (Auto) % Baso % (Auto) % Neut # (Auto) (1.40-6.50) K/uL Lymph # (Auto) (1.20-3.40) K/uL [place] # (Auto) (0.11-0.59) K/uL Eos # (Auto) (0.00-0.50) K/uL Baso # (Auto) (0.00-0.20) K/uL Immature Gran # (Auto) (0.01-0.20) K/uL PT (9.0-12.0) Seconds INR (0.9-1.1) APTT (21-31) Seconds PTT Ratio Sodium 139 (136-145) mmol/L Potassium 3.8 (3.5-5.1) mmol/L Chloride 107 (98-107) mmol/L Carbon Dioxide 25 (21-32) mmol/L Anion Gap 7 (3-11) BUN 10 (6-23) mg/dl Creatinine 0.50 L (0.6-1.2) mg/dl Est Cr Clr Drug Dosing 72.0 eGFR 98.36 BUN/Creatinine Ratio 20.0 (10-20) Glucose 75 (70-99(Fasting)) mg/dl Calcium 8.4 L (8.6-10.3) mg/dl Iron 10 L (35-150) mcg/dl TIBC 386 (250-450) mcg/dl Unsaturated IBC 376 H (155-355) mcg/dl Transferrin % Sat 3 L (15-50) % Ferritin 3.9 L (8-388) ng/ml Total Bilirubin (0.2-1.0) mg/dl AST (13-39) U/L ALT (7-52) U/L Alkaline Phosphatase (34-104) U/L Troponin I High Sens (0-14) pg/ml Total Protein (6.0-8.3) gm/dl Albumin (3.4-5.0) gm/dl Globulin (2.5-4.0) gm/dl Albumin/Globulin Ratio (0.9-2) POC Stool Occult Blood Positive A (Negative) Blood Type O Positive Antibody Screen NEGATIVE 12/09/23 Range/Units 15:45 WBC 11.01 H (4.8-10.8) K/ul RBC 4.15 L (4.20-5.40) M/uL Hgb 9.2 L (12.0-16.0) g/dl Hct 32.2 L (37.0-47.0) % MCV 77.6 L (80.0-100.0) fL MCH 22.2 L (25.0-34.0) pg MCHC 28.6 L (32.0-36.0) g/dL RDW Std Deviation 47.2 H (36.4-46.3) fL RDW Coeff of Yared 16.8 H (11.5-14.5) % Plt Count 495 H (130-400) K/uL MPV 10.0 (9.4-12.4) fL Immature Gran % (Auto) 0.4 % Neut % (Auto) 74.5 % Lymph % (Auto) 10.6 % [place] % (Auto) 12.3 % Eos % (Auto) 1.0 % Baso % (Auto) 1.2 % Neut # (Auto) 8.21 H (1.40-6.50) K/uL Lymph # (Auto) 1.17 L (1.20-3.40) K/uL [place] # (Auto) 1.35 H (0.11-0.59) K/uL Eos # (Auto) 0.11 (0.00-0.50) K/uL Baso # (Auto) 0.13 (0.00-0.20) K/uL Immature Gran # (Auto) 0.04 (0.01-0.20) K/uL PT 10.8 (9.0-12.0) Seconds INR 1.0 (0.9-1.1) APTT 27 (21-31) Seconds PTT Ratio 1.0 Sodium 136 (136-145) mmol/L Potassium 4.1 (3.5-5.1) mmol/L Chloride 104 (98-107) mmol/L Carbon Dioxide 25 (21-32) mmol/L Anion Gap 7 (3-11) BUN 11 (6-23) mg/dl Creatinine 0.56 L (0.6-1.2) mg/dl Est Cr Clr Drug Dosing Not Reportable eGFR 95.71 BUN/Creatinine Ratio 19.6 (10-20) Glucose 85 (70-99(Fasting)) mg/dl Calcium 9.2 (8.6-10.3) mg/dl Iron (35-150) mcg/dl TIBC (250-450) mcg/dl Unsaturated IBC (155-355) mcg/dl Transferrin % Sat (15-50) % Ferritin (8-388) ng/ml Total Bilirubin 0.5 (0.2-1.0) mg/dl AST 11 L (13-39) U/L ALT 9 (7-52) U/L Alkaline Phosphatase 75 (34-104) U/L Troponin I High Sens 3.9 (0-14) pg/ml Total Protein 6.8 (6.0-8.3) gm/dl Albumin 4.1 (3.4-5.0) gm/dl Globulin 2.7 (2.5-4.0) gm/dl Albumin/Globulin Ratio 1.5 (0.9-2) POC Stool Occult Blood (Negative) Blood Type Antibody Screen PG Care Time/CCT Total # of Minutes Spent Total Time Spent with Patient: Total time spent is greater than 50% in coordination of care (as documented) at patient's floor/unit and/or counseling patient: Coding Level of Care Code 41874 INT INP/OBS CARE 2/55MIN Diagnoses Symptomatic anemia D64.9
--- NOTE | 2023-12-10 09:29 | Anesthesiology Consultation ---
Date of Service December 10, 2023 Assessment & Plan Chart Review Chart Review: Acceptable Risk for Surgery and Patient NOT seen in Pre Admission Testing Consults Requested none ASA ASA3 Proposed Anesthesia Anesthesia Type: MAC Risk / Benefits Reviewed With: PT / POA / Parent / Guardian, Accepts Plan and Informed Consent Obtained History Surgery Operation Date: 12/10/23 16:55 Proposed Procedures p Esophagogastroduodenoscopy Zac Frank MD Height/Weight Height: 5 ft 7 in Weight: 46.2 kg Allergies Allergy/AdvReac Type Severity Reaction Status Date / Time metronidazole Allergy Intermediate HIVES/RASH/ITCHING/ Verified 12/03/23 14:16 OR ? SEIZURE ATTACK sulfamethoxazole [Bactrim] Allergy Intermediate hives Verified 12/03/23 14:16 trimethoprim [Bactrim] Allergy Intermediate hives Verified 12/03/23 14:16 animal dander Allergy Unknown ALLERGY TO Verified 12/03/23 14:16 RABBIT DANDER/FUR clarithromycin Allergy Unknown FROM Verified 12/03/23 14:16 BIAXIN - UNSURE OF REACTION fluoxetine Allergy Unknown UNKNOWN Verified 12/03/23 14:16 Sulfa (Sulfonamide Allergy Unknown PATIENT Verified 12/03/23 14:16 Antibiotics) DOES NOT BELIEVE SHE IS ALLERGIC TO SULFA Medications Home Medications Medication Instructions Recorded Confirmed Last Taken calcium carbonate 600 mg PO HS 08/22/20 12/09/23 09/02/20 cholecalciferol (vitamin D3) 50 50 mcg PO QAM 08/22/20 12/09/23 09/02/20 mcg (2,000 unit) tablet (Vitamin D3) nebulizers #1 ea 03/11/22 12/09/23 Unknown lutein 20 mg capsule 20 mg PO DAILY 10/15/22 12/09/23 Unknown alendronate 70 mg tablet (Fosamax) 70 mg PO WK #12 tabs 03/09/23 12/09/23 Unknown aspirin 81 mg tablet,delayed 81 mg PO QAM 05/04/23 12/09/23 Unknown release Oxygen Home #1 ea 05/12/23 12/09/23 Unknown ammonium lactate 5 % lotion 1 applic topical BID #226 grams 05/12/23 12/09/23 Unknown (Lac-Hydrin Five) furosemide 20 mg tablet 20 mg PO QAM PRN edema #14 tabs 05/12/23 12/09/23 Unknown nebulizer accessories (Adult #1 ea 05/12/23 12/09/23 Unknown Aerosol Mask) albuterol sulfate 2.5 mg/3 mL 2.5 mg (3 mL) inhalation Q4H PRN 06/10/23 12/09/23 Unknown (0.083 %) solution for nebulization shortness of breath or wheezing #75 mL ipratropium bromide 0.02 % 2.5 ml inhalation Q6H PRN 06/10/23 12/09/23 Unknown solution for inhalation shortness of breath or wheezing #150 mL lisinopril 5 mg tablet 5 mg PO QAM #100 tabs 07/12/23 12/09/23 Unknown apixaban 5 mg tablet (Eliquis) 5 mg PO BID 90 days #180 tabs 11/26/23 12/09/23 Unknown budesonide 160 mcg-glycopyr 9 2 inh inhalation BID #10.7 grams 12/09/23 12/09/23 Unknown mcg-formot 4.8 mcg/actuation HFA inhaler ([employer]ical [employer]iosphere) ensifentrine 3 mg/2.5 mL 2.5 ml inhalation BID #150 mL 12/09/23 12/09/23 Unknown suspension for nebulization ipratropium 20 mcg-albuterol 100 1 puff inhalation Q6H PRN 12/09/23 12/09/23 Unknown mcg/actuation mist for inhalation Shortness Of Breath Or Wheezing #4 (Combivent Respimat) grams Active Medications Generic Name Dose Route Start Last Admin Trade Name Freq PRN Reason Stop Dose Admin Albuterol 1 puffs 12/09/23 22:21 12/10/23 09:04 Albuterol Hfa 8 Gm Inhaler (Combivent Respimat P&T Subs) INH 01/08/24 22:20 1 puffs Q6H PRN Administration SOB or wheezing Protocol Fluticasone Furoate 1 puffs 12/10/23 09:00 12/10/23 08:54 Fluticasone Furoate 200mcg 14 Puffs/Inhaler INH 01/09/24 08:59 1 puffs DAILY NICCI Administration Pantoprazole Sodium 40 mg/ 10 mls @ 5 mls/min 12/10/23 09:00 12/10/23 08:53 Syringe IV 01/09/24 08:59 5 mls/min BID NICCI Administration Lactated Ringer's 1,000 mls @ 80 mls/hr 12/09/23 22:12 12/09/23 22:34 Lr IV 12/10/23 23:11 80 mls/hr .[id number] NICCI Administration Ipratropium [place] 1 puffs 12/09/23 22:22 12/10/23 09:04 Ipratropium Hfa Inhaler (Combivent Respimat P&T Subs) INH 01/08/24 22:21 1 puffs Q6H PRN Administration SOB or wheezing Protocol Miscellaneous 1 each 12/10/23 00:00 12/09/23 23:43 Order Awaiting Action: Ensifentrine 3 Mg/2.5 Ml Suspension For Nebulization N/A 01/09/24 00:00 Not Given QS NICCI Miscellaneous 1 each 12/10/23 08:59 12/10/23 08:54 Remove Nicoderm Patch N/A 01/09/24 08:58 1 each DAILY@0859 NICCI Administration Nicotine 1 patch 12/10/23 09:00 12/10/23 08:53 Nicotine 14 Mg/24 Hr Patch TD 01/09/24 08:59 1 patch QAM NICCI Administration Umeclidinium/Vilanterol 1 puffs 12/10/23 09:00 12/10/23 08:55 Umeclidinium/Vilanterol 62.5/25mcg 7 Puffs/Inhaler INH 01/09/24 08:59 1 puffs DAILY NICCI Administration NPO Date Last Intake of Fluids: 12/09/23 Time Last Intake of Fluids: 09:00 Date Last Intake of Solids: 12/09/23 Time Last Intake of Solids: 09:00 Past Medical History Medical History Hypertension Asthma Chronic obstructive pulmonary disease Exercise / Class Metabolic Activity II 4-5 Yardwork/Stairs/Walk up hill Past Family History Family History Mother Breast cancer Lymphoma Macular degeneration Multiple myeloma Sister Breast cancer Father Gehrig disease Grandmother (Maternal) Myocardial infarction Denies family history of Ovarian cancer Prostate cancer Colorectal cancer Past Surgical History Surgical History S/P cataract surgery History of cataract surgery LEFT Hx of tubal ligation Past Anesthesia History No Hx of Anesthesia Complications and No Family Hx of Anesthesia Complications History of PONV No Hx of PONV and No Hx of Motion Sickness Social History Smoking Status: Current every day smoker tobacco type: cigarettes Smoking cigarettes per day: 1/2 ppd Do You Dip or Chew Tobacco: No Hx Alcohol Use: Yes Alcohol type: wine alcohol intake frequency: 0-2 drinks per day Alcohol Intake Frequency Comment: 8 oz red wine daily Hx Substance Use: No substance use type: does not use Review of Systems ROS Unobtainable: All systems reviewed & are unremarkable except as noted in HPI & below Physical Exam Vital Signs Last Vital Signs Temp 36.2 C L 12/10/23 09:34 Pulse 102 H 12/10/23 09:34 Resp 16 12/10/23 09:34 BP 131/65 12/10/23 09:34 Pulse Ox 95 12/10/23 09:34 O2 Del Method Room Air 12/10/23 09:34 ENMT Mouth: no TMJ abnormality Thyromental Distance: > or= 3.5 Finger Breadths Mallampati Class: II Neck normal visual inspection and trachea midline; neck extension not limited Respiratory normal respiratory effort Auscultation: lungs clear to auscultation bilaterally Cardiovascular Rate/Rhythm: regular rate and regular rhythm Heart Sounds: no murmur Musculoskeletal Spine: normal cervical ROM Extremities: full ROM of extremities Neurologic moves all extremities Psychiatric Orientation: alert and oriented x 3 Testing Laboratory Results 12/10/23 05:21 12/10/23 05:21 PT 10.8 Seconds (9.0-12.0) 12/09/23 15:45 INR 1.0 (0.9-1.1) 12/09/23 15:45 APTT 27 Seconds (21-31) 12/09/23 15:45 Blood Type O Positive 12/09/23 16:21 Antibody Screen NEGATIVE 12/09/23 16:21 Electrocardiogram Date: 12/09/23 Sinus tachycardia with PACs Right atrial enlargement Borderline ECG When compared with ECG of 21-Apr-2023 16:28, No significant change was found Confirmed by Nick Ch ([id number]) on 12/09/2023 4:42:25 PM
--- NOTE | 2023-12-10 10:18 | GI REPORT ---
[facility] Patient: SHAY ALEXANDRE : 1950 Sex at : Female Age: 73 Years Procedure: Upper GI endoscopy Date: 12/10/2023 Attending Physician: Eddie Frank MD Referring MD: Papa Bower Indications: - Iron deficiency anemia - Recent gastrointestinal bleeding Medications: - Monitored Anesthesia Care Complications: - No immediate complications. Estimated Blood Loss: - Estimated blood loss: None. Procedure: - The egd scope was introduced through the mouth and advanced to the second part of the duodenum. - The upper GI endoscopy was accomplished without difficulty. - The patient tolerated the procedure well. Findings: - The Z-line was irregular and was found 38 cm from the incisors. - The examined esophagus was normal. - A 2 cm hiatal hernia was present. - The exam of the stomach was otherwise normal. - The examined duodenum was normal. Biopsies for histology were taken with a cold forceps for evaluation of celiac disease. Impression: - Z-line irregular, 38 cm from the incisors. - Normal esophagus. - 2 cm hiatal hernia. - Normal examined duodenum. Biopsied. Recommendation: - Await pathology results. - Intravenous iron replenishment. Outpatient colonoscopy. Advance diet. Hold anticoagulation Procedure Code(s): - 12119, Esophagogastroduodenoscopy, flexible, transoral; with biopsy, single or multiple Diagnosis Code(s): - D50.9, Iron deficiency anemia, unspecified - K92.2, Gastrointestinal hemorrhage, unspecified - K22.89, Other specified disease of esophagus - K44.9, Diaphragmatic hernia without obstruction or gangrene CPT(R) - 202 copyright [employer]. All Rights Reserved. The CPT codes, CCI edits and ICD codes generated are intended as suggestions and were generated based on input data. These codes are preliminary and upon union organizer review may be revised to meet current compliance and payer requirements. The provider is responsible for the final determination of appropriate codes, and modifiers. Eddie Frank M.D. MD This document has been electronically signed. Note Initiated:12/10/2023 Note Completed:12/10/2023 10:18 AM [id number]
[2023-12-10] MEDS: LIDOCAINE 2% 2 ML VIAL/AMP(20MG/ML) INFIL ONE (11:47)
[2023-12-10] MEDS: PROPOFOL IV EMULSION 10 MG/ML 20 ML VIAL IV ONE (11:47)
[2023-12-10] MEDS: INFLUENZA VACC TS2024-25(65y+)/PF (IIV3) 0.5mL Syr IM ONE (11:53)
[2023-12-10 11:56] LABS: Hemoglobin 7.6 g/dl (12.0-16.0)
--- NOTE | 2023-12-10 12:54 | Anesthesiology Progress Note ---
Date of Service December 10, 2023 Anesthesia Post Procedure Vital Signs Vital Signs: Temp Pulse Pulse Pulse Resp BP BP 12/10/23 11:45 85 18 106/68 12/10/23 11:20 87 16 125/71 12/10/23 11:00 36.6 C 92 H 16 117/77 12/10/23 10:47 83 16 116/67 12/10/23 10:32 90 16 109/63 12/10/23 10:17 88 16 110/58 L 12/10/23 09:34 36.2 C L 102 H 16 131/65 12/10/23 09:06 104 H 12/10/23 07:15 89 12/10/23 07:05 36.6 C 82 18 107/54 L 12/10/23 02:59 36.7 C 93 H 14 99/59 L 12/09/23 23:37 100 H 12/09/23 22:51 36.7 C 106 H 19 116/72 12/09/23 22:17 103 H 12/09/23 22:05 12/09/23 22:05 36.7 C 106 H 20 12/09/23 22:05 36.7 C 106 H 20 12/09/23 21:30 91 H 24 116/72 12/09/23 20:00 98 H 18 112/67 12/09/23 19:24 92 H 24 111/68 12/09/23 17:55 99 H 12/09/23 17:48 109 H 26 H 12/09/23 17:48 12/09/23 15:22 117 H 12 111/70 BP Pulse Ox O2 Del Method 12/10/23 11:45 100 Room Air 12/10/23 11:20 99 Room Air 12/10/23 11:00 99 Room Air 12/10/23 10:47 98 Room Air 12/10/23 10:32 96 Room Air 12/10/23 10:17 100 Room Air 12/10/23 09:34 95 Room Air 12/10/23 09:06 97 Room Air 12/10/23 07:15 12/10/23 07:05 96 Room Air 12/10/23 02:59 95 Room Air 12/09/23 23:37 96 12/09/23 22:51 98 Room Air 12/09/23 22:17 12/09/23 22:05 Room Air 12/09/23 22:05 116/72 98 Room Air 12/09/23 22:05 116/72 98 Room Air 12/09/23 21:30 99 12/09/23 20:00 99 12/09/23 19:24 99 Room Air 12/09/23 17:55 12/09/23 17:48 100 Room Air 12/09/23 17:48 Room Air 12/09/23 15:22 96 Room Air Transfer of Care Handoff Completed per policy Notes Mental Status: alert / awake / arousable Patient Amnestic to Procedure: Yes Nausea / Vomiting: adequately controlled Pain: adequately controlled Airway Patency, RR, SpO2: stable & adequate BP & HR: stable & adequate Hydration State: stable & adequate Anesthetic Complications: no major complications apparent and Pt Satisfied with anesthetic care
[2023-12-10] MEDS: IRON SUCROSE 300 MG in SODIUM CHLORIDE 0.9% 250 ML IV ONE (16:41)
[2023-12-11 06:23] LABS: Hematocrit (blood only) 25.5 % (37.0-47.0); Hemoglobin 7.4 g/dl (12.0-16.0); Mean Corpuscular Hemoglobin 22.2 pg (25.0-34.0); Mean Corpuscular Volume 76.3 fL (80.0-100.0); Mean Platelet Volume 9.9 fL (9.4-12.4); Platelet Count 340 K/uL (130-400); RDW Coefficient of Variation 16.5 % (11.5-14.5); RDW Standard Deviation 44.6 fL (36.4-46.3); Red Blood Count 3.34 M/uL (4.20-5.40); White Blood Count 5.77 K/ul (4.8-10.8)
[2023-12-11 06:45] LABS: BUN Creatinine Ratio 20.4 (10-20); Calcium 8.1 mg/dl (8.6-10.3); Potassium 3.6 mmol/L (3.5-5.1)
--- NOTE | 2023-12-11 06:50 | Hospitalist Progress Note ---
Date of Service December 11, 2023 Assessment & Plan (1) Acute upper GI bleed: (2) Symptomatic anemia: (3) Hypotension: Plan Jacquelyn is a 73F w h/o chronic respiratory failure (not on baseline O2), smoking, COPD w/ emphysema, HLD, HTN, and osteoporosis who presented from outpatient bobtail driver due to hypotension and tachycardia. #GIB - Pt reports intermittent melena/diarrhea w/o epigastric discomfort, nausea, or emesis Potential a/w alcohol use, as dark stools occur after drinking wine Significant (exact amt unknown) weight loss in past 1-2 years Has been on apixaban for DVT since May 2023 - Pantoprazole for GI ppx, Zofran for nausea PRN - Stool occult blood + - CT A/P on 12/08: No acute findings - GI consulted, recommend: IV PPI, hold NSAIDs & AC, trend H&H, monitor and document GI output, Transfuse PRN, OP Colonoscopy, CT CAP w/ IV and PO contrast - EGD on 12/09: 2cm hiatal hernia; normal duodenum biopsied; no source of bleeding identified; hold anticoag, plan for outpt colonoscopy #Anemia, acute blood loss #Hypotension, in setting of anemia - Mild hemodynamic instability on arrival, w hypotension to 92/64 and tachycardia to 117 - Vitals improved w IVF, HR wnl now and BP up to 133/76 this morning - Hgb stabilizin.2 at arrival --> 7.3 --> 7.6 yesterday --> 7.4 today, pt asymptomatic - Iron studies showed low Fe and Transferrin % sat --> given 300mg IV iron 12/09 PM - Continue trending H&H, transfuse as needed (Hgb < 7 or <8 and symptomatic) Admission and Anticipated Discharge Date Admission Date: December 09, 2023 Supervising Physician Co-Signing Physician Notes ATTESTATION I also saw the patient and confirmed ferrer portions of the history and exam. I agree with the impression and plan in the resident documentation, and as summarized below. She is not feeling quite as well this morning - more nondescript symptoms, just feeling "a bit off" and "not herself." Some shortness of breath, more than her baseline and more than yesterday as well. EXAM 123/67, 91, 16, 37 C, 96% on room air No acute distress appreciated. Non toxic. Alert and oriented. CV regular rate, slightly tachycardic this morning Lungs with nonlabored respirations ABD non tender DATA Labs HgB = 7.4 this morning BUN 11, creatinine 0.54 IMPRESSION & PLAN Anemia suspect secondary to GI bleeding Hemoglobin is relatively stable, I suspect bleeding is stopped with holding anticoagulation However, she is slightly more symptomatic this morning so given this, and after discussion with her bobtail driver noting her comorbidities, will transfuse 2 units Since she had greater than 6 months coagulation for initial VTE, no indication to resume anticoagulation EGD negative; will need colonoscopy as an outpatient Additional per resident documentation Subjective Not feeling very well today. Had trouble breathing o.n. requiring some inhalers, and didn't sleep well. Concerned about not being on appropriate meds for COPD, expects to see her bobtail driver today. No FARNSWORTH, dizziness, CP, n/v, abd pain, dysuria. Review of Systems 2 Review of Systems: Per HPI. Physical Exam 2 Physical Exam: Gen: NAD, alert, interactive, pleasant HEENT: NCAT, PERRL, EOMI CV: RRR, no m/r/g, S1/S2 normal Resp: Breathing non-labored, symmetrical chest rise Abd: Soft, NT/ND, no masses MSK: Full ROM, normal str, no gross deformities Skin: Warm, dry, pink, no rashes or lesions Results & Data Results & Data Vital Signs (Past 12 Hours) Vital Signs Temp Pulse Pulse Resp BP Pulse Ox O2 Del Method 12/11/23 02:06 36.4 C L 105 H 20 139/74 91 Room Air 12/10/23 23:33 36.6 C 90 18 124/65 93 Room Air 12/10/23 22:45 102 H 16 94 Room Air 12/10/23 22:00 91 H 12/10/23 19:09 88 18 109/60 96 Room Air Laboratory Results 12/11/23 05:32 12/11/23 05:32 Resident Activity Tracking Resident Involvement: Resident Care Provided Care Provided: Adult Hospital Medicine
[2023-12-11] MEDS ORDERED: ALBUTEROL HFA 8 GM INHALER INH PRN (12:23)
[2023-12-11] MEDS ORDERED: ALBUTEROL 0.083% NEBU SOLN 3 ML VIAL INH PRN (12:23)
[2023-12-11] MEDS ORDERED: SODIUM CHLORIDE 0.9% 250 ML IV PRN (13:56)
[2023-12-11] MEDS: BUDESONIDE 0.5 MG/2 ML VIAL (PULMICORT) NEB SCH (19:03)
[2023-12-11] MEDS: FORMOTEROL 20 MCG/2 ML VIAL INH SCH (19:03)
[2023-12-11 22:54] LABS: Hematocrit (blood only) 34.8 % (37.0-47.0); Hemoglobin 10.5 g/dl (12.0-16.0)
[2023-12-11] MEDS: ALBUT/IPRATROP 3MG/0.5MG NEB 3 ML VIAL NEB PRN (23:17)
[2023-12-12 06:13] LABS: Hematocrit (blood only) 33.1 % (37.0-47.0); Hemoglobin 10.3 g/dl (12.0-16.0); Mean Corpuscular Hemoglobin 23.7 pg (25.0-34.0); Mean Corpuscular Hgb Conc 31.1 g/dL (32.0-36.0); Mean Corpuscular Volume 76.3 fL (80.0-100.0); Mean Platelet Volume 10.1 fL (9.4-12.4); Platelet Count 327 K/uL (130-400); RDW Coefficient of Variation 16.8 % (11.5-14.5); RDW Standard Deviation 46.5 fL (36.4-46.3); Red Blood Count 4.34 M/uL (4.20-5.40); White Blood Count 5.51 K/ul (4.8-10.8)
[2023-12-12 06:31] LABS: BUN Creatinine Ratio 13.7 (10-20); Calcium 8.3 mg/dl (8.6-10.3); Creatinine Clr Calc Pharmacy 75.9 ml/min; Potassium 3.7 mmol/L (3.5-5.1)
[2023-12-12 07:23] VITALS: O2SAT 98
--- NOTE | 2023-12-12 07:27 | Discharge Summary ---
Date of Service December 12, 2023 Admission HPI Per Admitting Provider Jacquelyn is a 73F w/ PMH of chronic respiratory failure (not on baseline O2), smoking, COPD w/ emphysema, HLD, HTN, and osteoporosis who presented due to hypotension. ED: Pantoprazole Patient presented to her outpatient pulmonology appointment today and was noted to be hypotensive and tachycardic, and thus was sent to ED. She states that today she awakened feeling 'off' but did not have any specific symptoms. She has not had any chest pain, worsening dyspnea, lightheadedness, dizziness, abdominal pain, nausea or emesis. She denies dysuria, but endorses dark to black diarrhea (when she drinks red wine). Patient continues to take Eliquis for a lower extremity DVT she had in April, she was advised to take Eliquis indefinitely outpatient. She notes that over the last year she has had progressively reduced appetite to the point of weight loss. She consumes one meal daily and has 1-2 glasses of red wine each day. She bennie abdominal bloating, lymphadenopathy, fevers, chills, or night sweats. She has chronic respiratory failure from COPD/emphysema, but does not require O2 at baseline. She uses a CPAP at night and during daytime sleep, but overall, she feels that her breathing is at baseline. PCP: Dr. Sheehan Casting Repairer: Dr. Joyner Admission Exam Per Admitting Provider Gen: NAD, alert, interactive, pleasant HEENT: Supple, no LAD, no thyromegaly, no JVD, dry mucous membranes Resp:Non-labored, reduced air entry bilaterally, no wheezing/rhonchi/rales CV:tachycardic, regular rhythm, normal S1/S2, no M/R/G Abd: Soft, non-distended, no TTP, hypooactive bowels, no masses Extr: 2+ dp bilaterally, no edema Skin: Abrasion/wound to lateral aspect of left great toe w/o purulence or erythema. Dark brown skin lesion on right upper back (scapula) with irregular coloring and borders amidst numerous seborrheic keratosis. Principal Diagnosis Anemia Discharge Exam Gen: NAD, alert, interactive, pleasant HEENT: NCAT, PERRL, EOMI CV: RRR, no m/r/g, S1/S2 normal Resp: Breathing non-labored, symmetrical chest rise Abd: Soft, NT/ND, no masses MSK: Full ROM, normal str, no gross deformities Skin: Warm, dry, pink, no rashes or lesions Discharge Data Allergies Allergy/AdvReac Type Severity Reaction Status Date / Time metronidazole Allergy Intermediate HIVES/RASH/ITCHING/ Verified 12/03/23 14:16 OR ? SEIZURE ATTACK sulfamethoxazole [Bactrim] Allergy Intermediate hives Verified 12/03/23 14:16 trimethoprim [Bactrim] Allergy Intermediate hives Verified 12/03/23 14:16 animal dander Allergy Unknown ALLERGY TO Verified 12/03/23 14:16 RABBIT DANDER/FUR clarithromycin Allergy Unknown FROM Verified 12/03/23 14:16 BIAXIN - UNSURE OF REACTION fluoxetine Allergy Unknown UNKNOWN Verified 12/03/23 14:16 Sulfa (Sulfonamide Allergy Unknown PATIENT Verified 12/03/23 14:16 Antibiotics) DOES NOT BELIEVE SHE IS ALLERGIC TO SULFA Consultations 12/09/23 18:52 ED Decision to Admit Stat 12/09/23 22:12 Consult Gastroenterology Routine Procedures Performed Operation Date: 12/10/23 16:55 Actual Procedures p EGD Biopsy Cytology - Eddie Frank MD Ordered Studies 12/12/23 05:20 12/12/23 05:20 Chest X-Ray 12/09/23 00:00 XR chest 1V not portable HISTORY: 73 years-old Female Chest pain, nonspecific COMPARISON: CT chest 05/04/2023 TECHNIQUE: PA view of the chest FINDINGS: Emphysema with chronic interstitial coarsening. Biapical pleural parenchymal scarring redemonstrated. Unchanged linear scarring versus atelectasis of the right lung base. No pneumothorax, pleural effusion or overt pulmonary edema. Degenerative changes of the shoulders and spine. IMPRESSION: Emphysema without acute process. ACT 112: Negative or not required by law. The above report was generated using voice recognition software. It may contain grammatical, syntax or spelling errors. Electronically signed by: David Rodrigez M.D. 12/09/2023 5:04 PM Abdomen/Pelvis CT 12/09/23 20:25 Exam(s): CT ABDOMEN + PELVIS With Contrast IV Amt: 95 ml optiray 320 EXAM: CT Abdomen and Pelvis With Intravenous Contrast CLINICAL HISTORY: Reason for exam: melena, weight loss. TECHNIQUE: Axial computed tomography images of the abdomen and pelvis with intravenous contrast. CTDI is 7 mGy and DLP is 321 mGy-cm. Automated exposure control was utilized for the study. A dose lowering technique was utilized adhering to the principles of ALARA. CONTRAST: Patient received 95 ml optiray 320 of IV contrast COMPARISON: 06/15/2019 FINDINGS: Lung bases: Diffuse changes COPD. No consolidation.small right pleural effusion ABDOMEN: Liver: Unremarkable. No mass. Gallbladder and bile ducts: Unremarkable. No calcified stones. No ductal dilation. Pancreas: Unremarkable. No mass. No ductal dilation. Spleen: Unremarkable. No splenomegaly. Adrenals: Unremarkable. No mass. Kidneys and ureters: Unremarkable. No solid mass. No hydronephrosis. Stomach and bowel: Diverticulosis without evidence of diverticulitis. No obstruction. PELVIS: Appendix: No findings to suggest acute appendicitis. Bladder: Unremarkable. No mass. Reproductive: Unremarkable as visualized. ABDOMEN and PELVIS: Intraperitoneal space: Unremarkable. No free air. No significant fluid collection. Bones/joints: No acute fracture. No dislocation. Soft tissues: Unremarkable. Vasculature: Diffuse vascular calcifications. No abdominal aortic aneurysm. Lymph nodes: Unremarkable. No enlarged lymph nodes. Other findings: Multilevel discogenic disc disease of the lumbar spine. IMPRESSION: No acute findings in the abdomen or pelvis. Chronic changes as described above Electronically signed by: Hans Oakley MD 12/09/23 22:29 PM Hospital Course (1) Acute upper GI bleed: (2) Symptomatic anemia: (3) Hypotension: Moises Valladares is a jose 73yo F w h/o chronic respiratory failure (not on baseline O2), smoking, COPD w/ emphysema, HLD, HTN, and osteoporosis who presented from outpatient ironworker apprentice due to hypotension and tachycardia. #GIB - Pt reports intermittent melena/diarrhea w/o epigastric discomfort, nausea, or emesis Potential a/w alcohol use, as dark stools occur after drinking wine Significant (exact amt unknown) weight loss in past 1-2 years Had been on apixaban for DVT since May 2023 - GI consulted, recommended: IV PPI, hold NSAIDs & AC, trend H&H, monitor and document GI output, Transfuse PRN, OP Colonoscopy, CT CAP w/ IV and PO contrast - Stool occult blood + - CTAP w con on 12/08 showed no acute findings - EGD on 12/09: 2cm hiatal hernia; normal duodenum biopsied; no source of bleeding identified; hold anticoag - Schedule outpt colonoscopy - Held alendronate due to GI side effects Follow-up w PCP to re-evaluate whether to resume #Anemia, acute blood loss 2/2 GIB - Mild hemodynamic instability on arrival, w hypotension to 92/64 and tachycardia to 117 - Vitals improved w IVF, HR wnl and BP up to 116/72 on day of discharge - Held anticoagulation Started ~May 2023 after DVT; no recurrence, >6m of tx, safe to stop - Hgb improved: ~14 baseline --> 9.2 at arrival --> 7.4 yesterday --> 10.3 today - Iron studies showed low Fe and Transferrin % sat --> given 300mg IV iron 12/09 PM - Given 2U pRBC on 12/10 PM; H&H 3h post-transfusion 10.5 & 34.8 - Morning labs on day of d/c show Hgb still > 10, pt asymptomatic Total Time Total Time Spent Total Time Spent (In Minutes): I spent 35 mins seeing the patient, reviewing data, and documentation Discharge Plan Discharge Items Patient Disposition: Home - Self-Care Reason For Visit: HYPOTENSION Discharge Diagnosis: Anemia due to chronic bleed Activity: Per Instructions section Non-emergency contact: Primary Care Provider, Karate Black Belt and Casting Repairer Call non-emergency contact if: you have any medication questions and your symptoms worsen Follow-up/Referrals: Rose Marie Sheehan MD [Primary Care Provider] - Diet: Regular Addtl Attending Provider Instructions: You were admitted to the hospital for anemia, with hemoglobin much lower than your normal, and low blood pressures, likely related to the chronic blood loss. Because of your other symptoms of diarrhea and dark-colored stool, it was suspected that the anemia and hypotension were related to an going GI bleed. An EGD was done, but no source of bleeding was identified. The GI team recommended further evaluation of a possible bleed with a colonoscopy, outpatient. We held your anticoagulant medications, as it has been over 6 months since they were started for your DVT (deep venous thrombosis). After stopping anticoagulation, your anemia stabilized, suggesting the bleeding was controlled. After we gave you IV iron and 2 units of blood, your hemoglobin greatly improved and remained stable. You were deemed safe to go home now that your vital signs and blood work look better, the bleeding stopped, and you are feeling more yourself. Your medication list has been reviewed and reconciled upon discharge to ensure accuracy and continuity of care. An updated list of all your medications is included with your hospital discharge paperwork. We are stopping your Eliquis (apixaban) and aspirin We are holding your Fosamax (alendronate) because of your likely GI bleed and its potential GI side effects. You can re-evaluate at your primary care appointment whether to resume Take your medications as instructed; do not skip a dose. Make sure all of your doctors know every medicine you are taking (including phlt-vjo-foezejr medicines, vitamins, and supplements). Follow-up appointments: Make a follow-up appointment with your PCP within the next week. It is very important that you follow up with them shortly after discharge from the hospital. Schedule a colonoscopy at the first available date Follow-up with your ironworker apprentice within the next 2 weeks Please bring a copy of this discharge summary with you to your next office appointment so that your provider can review it at that time and stay updated on your hospitalization and potential changes in your care. If you have any questions about your hospitalization, you may call [phone] and ask to leave a message for Dr. Hernadnez. Contact your PCP if you have persistant or worsening symptoms. Call [phone] or go to the ER if you experience any of the following: Sudden, severe abdominal pain or nausea/vomiting Severe chest pain, or chest pain that radiates (moves) to your jaw or arm Sudden, severe shortness of breath or difficulty breathing Thank you for allowing us to participate in your care. Pending Studies at Discharge: No Stand-Alone Forms: [facility], Smoking Cessation Medications and DC Order Prescriptions: Continued lisinopril 5 mg tablet 5 mg PO QAM Qty: 100 2RF (DME) nebulizers Misc See Rx Instructions .Route Qty: 1 0RF Rx Instructions: use as directed. compressor with hose and associated accessories-J44.9 lutein 20 mg capsule 20 mg PO DAILY Rx Instructions: give with meal/snack ipratropium bromide 0.02 % solution 2.5 ml inhalation Q6H PRN (Reason: shortness of breath or wheezing) Qty: 150 4RF albuterol sulfate 2.5 mg /3 mL (0.083 %) solution for nebulization 2.5 mg inhalation Q4H PRN (Reason: shortness of breath or wheezing) Qty: 75 4RF furosemide 20 mg tablet 20 mg PO QAM PRN (Reason: edema) Qty: 14 1RF Rx Instructions: Take for 3-5 days for leg swelling Lac-Hydrin Five 5 % lotion 1 applic topical BID Qty: 226 1RF (DME) Adult Aerosol Mask Misc See Rx Instructions .Route Qty: 1 0RF Rx Instructions: As directed. Adult aerosol Mask and tubing (DME) Oxygen Home Liters Per Minute See Rx Instructions .Route Qty: 1 0RF Rx Instructions: 2L/min via [place] Breztri Aerosphere 160-9-4.8 mcg/actuation HFA aerosol inhaler 2 inh inhalation BID Qty: 10.7 5RF Combivent Respimat 20-100 mcg/actuation mist 1 puff inhalation Q6H PRN (Reason: Shortness Of Breath Or Wheezing) Qty: 4 4RF ensifentrine 3 mg/2.5 mL suspension for nebulization 2.5 ml inhalation BID Qty: 150 5RF calcium carbonate 600 mg calcium (1,500 mg) Tablet 600 mg PO HS cholecalciferol (vitamin D3) [Vitamin D3] 50 mcg (2,000 unit) Tablet 50 mcg PO QAM Held alendronate [Fosamax] 70 mg tablet 70 mg PO WK Qty: 12 3RF Hold Instructions: Resume on 02/12/24. Evaluate at follow-up PCP appointment Rx Instructions: Take with lg glass of water on empty stomach at least 30 min before eating Discontinued Eliquis 5 mg tablet 5 mg PO BID 90 Days Qty: 180 0RF aspirin [Aspir-Low] 81 mg Tablet,Delayed Release (Dr/Ec) 81 mg PO QAM Discharge Orders: Discharge Order (Routine); Ordered 12/12/23 Ordered By: Jonathan Hernandez Admission Data Admit Date/Time: 12/09/23 20:06 Attending Provider: Papa Bower Admit Provider: Skyler Mendes Primary Care Provider: Rose Marie Sheehan Other Providers: Daryl Rankin; Ruben Moore; Jose Landry; Leigh Sal; Janell Garcia; Arlene Jc; Norma Bowling; Radha Melendez; Roge Levy; Nam Landon; Elaina Barlow; Angie Mirza; Maximino Raymundo S; Leslie Mehta; Yelena Diaz; Magda Jaimes; Karrie Meeks; Leslie Wheatley; Howard Kern; Massiel Marcos; Tierney Ramírez Jr; Eddie Frank; Yaakov Lowe; Jason Quinn; Kike Vickers; Daya Espinoza; Arnel Bernal I; Chastity Carlson Other Interventions: Discharge Summary Assessment (RN) Last Done: 12/12/23 13:35 Supervising Physician Co-Signing Physician Notes ATTESTATION I also saw the patient and confirmed ferrer portions of the history and exam. I agree with the impression and plan in the resident documentation, and as summarized below. She feels well this morning. Has been ambulating with her walker - which she uses at home - without difficulty. She already has her living and bedrooms on one floor, so she has no concerns with discharge today. EXAM 122/72, 70, 16, 36.6, 98% No acute distress appreciated. Non toxic. Alert and oriented. CV RRR Lungs with nonlabored respirations ABD non tender DATA Labs HgB = 10.3 this morning BUN 7, creatinine 0.51 IMPRESSION & PLAN Anemia suspect secondary to GI bleeding HgB improved status post transfusion, and symptomatically improved Source is not clear, as EGD was normal; will need colonoscopy as outpatient. Since she had greater than 6 months coagulation for initial VTE, no indication to resume anticoagulation Discussed also stopping aspirin. Hold alendronate for now questionable GI side effects In summary for post discharge 1) Discontinue Eliquis and aspirin 2) CBC mid to late week 3) Outpatient colonoscopy 4) PCP follow up 1-2 weeks 5) Hold alendronate for now Additional per resident documentation Resident Activity Tracking Resident Involvement: Resident Care Provided Care Provided: [facility] Medicine
[2023-12-12 10:58] VITALS: RESP 17; TEMP 97.5
[2023-12-12 13:37] VITALS: BP 116/72; PULSE 106
== END 2023-12-12 14:34 | disposition home or self-care (01) | DRG 378 ==
LOC: ED 15:14 → 2E 20:06 → SUATTDRO 20:06 → 2E 21:45